=== PATIENT | male | born 1990 | race African-American/Black ===

== ENCOUNTER 2024-01-02 20:43 | Emergency (ER) | payer OTHER, SELFPAY ==
[2024-01-02 20:53] VITALS: BP 142/82; PULSE 98; RESP 16; TEMP 36.5; O2SAT 98; BMI 31.7
--- NOTE | 2024-01-02 21:03 | CRLHL7_ITS ---
For Patients: As a result of the Century Cures Act, medical imaging exams and procedure reports are released immediately into your electronic medical record. You may view this report before your referring provider. If you have questions, please contact your health care provider. Indication: Left testicular pain. Technique: Ultrasound of the scrotum and contents. Sonographic menendez-scale images were obtained with spectral and color Doppler waveform and spectral waveform analysis of the testicles. Comparison: None. Findings: Both testicles are normal in size and echotexture. No masses. No suspicious calcifications. Arterial and venous color Doppler blood flow and spectral waveforms are present in both testicles. The right testicle measures 4.4 x 2.1 x 2.9 cm and the left testicle measures 4.3 x 2.5 x 2.8 cm. Epididymis: 9 mm left epididymal head cyst. Hyperemia and enlargement of the left epididymis. Normal right epididymis. Other: Small simple left hydrocele. No sign of varicocele. Scrotal wall is normal. Impression: 1. Acute left-sided epididymitis. 2. Unremarkable testicles. No mass. No sign of torsion or inflammation. Dictated by Moe Tsai MD @ 01/02/2024 11:51:00 PM (Electronically Signed)
--- NOTE | 2024-01-02 22:24 | ED_ITS ---
HPI - General Adult General Chief complaint: Urogenital Problems, Male Stated complaint: genital pain Time Seen by Provider: 01/02/24 20:59 Source: patient Mode of arrival: ambulatory Limitations: no limitations History of Present Illness HPI narrative: 33-year-old male coming in today complaining of testicular pain. Pain is located on the left testicle. Patient states that 2 weeks ago he had similar episode on both sides and that went away within a very short amount of time, yesterday the pain came back on the left. He denies any increased urinary frequency, urgency or dysuria. He denies any penile discharge. Patient is sexually active. He states that the pain is severe and is preventing him from finding any comfortable position throughout the day. He denies any fevers or chills. No diarrhea or constipation. No blood in his urine. Denies any trauma to the testicles. Was sexually active yesterday. Related Data Previous Rx's ?Medication ?Instructions ?Recorded doxycycline hyclate 100 mg capsule 100 mg PO BID 10 days #20 caps 01/02/24 ketorolac 10 mg tablet 10 mg PO TID 5 days #15 tabs 01/02/24 Allergies Allergy/AdvReac Type Severity Reaction Status Date / Time hydrocodone Allergy Verified 01/02/24 20:58 Review of Systems Status of ROS: Reports: 10 or more systems reviewed and unremarkable except as noted in History and below Exam Narrative: Exam Narrative: Well-nourished well-developed patient in mild distress. Alert and oriented. Answers questions appropriately. Mood and affect are appropriate. Thoughts are goal oriented and rational. No tangential or magical thinking noted. Patient speaks in full sentences without needing to catch his breath. HEENT: Normocephalic atraumatic. Pupils are equally round reactive to light. Extraocular muscles are intact. Conjunctivae are moist without any icterus noted. Moist mucous membranes. : Patient has a normal right testicle without pain or discomfort. The left testicle is exquisitely tender over the epididymis. Patient almost jumps off the table in pain. He has no inguinal lymphadenopathy noted. There are no skin changes such as erythema or induration. No penile discharge. Testicles are not high riding. Const: Vital Signs, click to edit/add: Vital Signs - 24 hr 01/02/24 20:53 Temperature 97.7 F Pulse Rate [Pulse Oximeter] 98 Respiratory Rate 16 Blood Pressure [Ri ght Upper Arm] 142/82 H Pulse Oximetry 98 Oxygen Delivery Me thod Room Air Course Course ED Course: Given the amount of tenderness patient was having, we did ultrasound the testicles. This did not show any torsion. Consistent with epididymitis. Urine chlamydia gonorrhea testing pending. Patient received 500 mg of IM Rocephin while here and will be discharged on doxycycline b.i.d. for the next 10 days. Vital Signs Vital signs: Initial Vital Signs Temperature 97.7 F 01/02/24 20:53 Temperature Source Temporal Artery Scan 01/02/24 20:53 Pulse Rate 98 01/02/24 20:53 Respiratory Rate 16 01/02/24 20:53 Blood Pressure 142/82 H 01/02/24 20:53 Blood Pressure Mean 102 01/02/24 20:53 Blood Pressure Position Sitting 01/02/24 20:53 Pulse Oximetry 98 01/02/24 20:53 Oxygen Delivery Method Room Air 01/02/24 20:53 Vital Signs Temperature 97.7 F 01/02/24 20:53 Pulse Rate 98 01/02/24 20:53 Respiratory Rate 16 01/02/24 20:53 Blood Pressure 142/82 H 01/02/24 20:53 Pulse Oximetry 98 01/02/24 20:53 Oxygen Delivery Method Room Air 01/02/24 20:53 Temperature 97.7 F 01/02/24 20:53 Pulse Rate 98 01/02/24 20:53 Respiratory Rate 16 01/02/24 20:53 Blood Pressure 142/82 H 01/02/24 20:53 Pulse Oximetry 98 01/02/24 20:53 Oxygen Delivery Method Room Air 01/02/24 20:53 Medications Administered Medications: Discontinued Medications Generic Name Dose Route Start Last Admin Trade Name Freq PRN Reason Stop Dose Admin Ketorolac Tromethamine 60 mg 01/02/24 22:18 01/02/24 22:30 Ketorolac 30 Mg/Ml Inj IM 01/02/24 22:19 60 mg ONCE ONE Administration Medical Decision Making MDM Narrative Medical decision making narrative: 33-year-old male with epididymitis. Will cover with Rocephin and doxycycline. Patient to follow-up with primary care as needed Lab Data Labs: Lab Results 01/02/24 Range/Units 22:22 C.trachomatis Ampl DNA NOT DETECTED (No Detected) N.gonorrhoeae Ampl DNA NOT DETECTED (No Detected) Imaging Data Scrotal ultrasound: Attestation: I have reviewed the pertinent imaging results. Radiologist's impression: Study:?US-Testicle -01/02/2024 10:28:34 PM Ordering Physician:Carmen Lemon Final Report: Indication: Left testicular pain. Technique: Ultrasound of the scrotum and contents. Sonographic menendez-scale images were obtained with spectral and color Doppler waveform and spectral waveform analysis of the testicles. Comparison: None. Findings: Both testicles are normal in size and echotexture. No masses. No suspicious calcifications. Arterial and venous color Doppler blood flow and spectral wa veforms are present in both testicles. The right testicle measures 4.4 x 2.1 x 2.9 cm and the left testicle measures 4.3 x 2.5 x 2.8 cm. Epididymis: 9 mm left epididymal head cyst. Hyperemia and enlargement of the left epididymis. Normal right epididymis. Other: Small simple left hydrocele. No sign of varicocele. Scrotal wall is normal. Impression: 1. Acute left-sided epididymitis. 2. Unremarkable testicles. No mass. No sign of torsion or inflammation. Discharge Plan Discharge Clinical Impression: Epididymitis Patient Disposition: Home, Self-Care Condition: Stable Instructions: Epididymitis (ED) Additional Instructions: Take all antibiotics as prescribed. Okay to take pain medications as needed/as prescribed. Prescriptions: New ketorolac 10 mg tablet 10 mg PO TID 5 Days Qty: 15 0RF doxycycline hyclate 100 mg capsule 100 mg PO BID 10 Days Qty: 20 0RF Follow Up/Referrals: Provider,Not a Local [Primary Care Provider] - Stand Alone [facility]: [facility] Info Inst[facility]
[2024-01-02] MEDS: KETOROLAC 30 MG/ML inj 60 MG IM (22:30)
[2024-01-02 23:55] LABS: Chlamydia DNA Amplified* NOT DETECTED (No Detected); GC DNA Amplified* NOT DETECTED (No Detected)
== END 2024-01-02 22:51 | disposition home or self-care (01) ==
PROVIDERS: Emergency Provider Family Medicine
DX: N45.1 Epididymitis (principal)
CPT/HCPCS: 76870; 87491; 87591; 93976; 96372; 99283; 99284; J1885

== ENCOUNTER 2024-04-18 18:50 | Emergency (ER) | payer SELFPAY ==
[2024-04-18 19:02] VITALS: BP 117/80; PULSE 127; RESP 18; TEMP 35.8; O2SAT 91; BMI 29.6
--- NOTE | 2024-04-18 19:13 | ED.GENADULT ---
HPI - General Adult General Chief complaint: Fever Stated complaint: Fever, congestion, chest pain Time Seen by Provider: 04/18/24 19:03 History of Present Illness HPI narrative: sick x 3 days, coughing, congested, ribs hurt from coughing. can' t sleep. cold sweats, hot and cold. has not taken temperature. was around daughter who was sick. tested for covid at home, negative. 34-year-old man presenting to the emergency department with concern of being sick. This enough 3rd day of illness. Has been coughing in generally congested. His chest hurts from coughing. He just can not sleep. He has been taking NyQuil. He says he is just feeling cold and then ?sweatin' bullets?. No measured fever however. Daughter apparently has been sick with unspecified illness. Excreted self negative for COVID at home. He does smoke. He has been hydrating well. He has not been nauseated or vomiting. Related Data Home Medications ?Medication ?Instructions ?Recorded ?Confirmed No Known Home Medications 04/18/24 04/18/24 Allergies Allergy/AdvReac Type Severity Reaction Status Date / Time hydrocodone Allergy Verified 01/02/24 20:58 Review of Systems Status of ROS: Reports: 6 or more systems reviewed and unremarkable except as noted in History and below [facility] Social History Smoking Status: Never smoker Second hand tobacco smoke exposure: No How often do you have a drink containing alcohol: never AUDIT-C Alcohol total score: 0 Non-prescribed substance use: denies use service: No Exam Narrative: Exam Narrative: Pleasant. Mildly labored but not actually tachypneic. Quite congested. Seems like a does not feel very good. Skin is warm and dry. He has got number of facial and arm tattoos. Is well-perfused peripherally. Without edema. Lungs with good air movement and there is crepitus in the right lower lung field. Heart is tachycardic in a regular rhythm. Vitals are noted. Arrives with initially oxygen saturations of 91%. I thought may be detecting the smell ketones in the room Const: Vital Signs, click to edit/add: Vital Signs - 24 hr 04/18/24 19:02 04/18/24 20:37 04/18/24 21:00 Temperature 96.4 F L Pulse Rate 137 H Pulse Rate [Pulse Oximeter] 127 H Respiratory Rate 18 Blood Pressure [Ri ght Upper Arm] 117/80 Pulse Oximetry 91 92 91 Oxygen Delivery Me thod Room Air 04/18/24 21:05 04/18/24 21:06 04/18/24 21:30 Temperature Pulse Rate 131 H 139 H 128 H Pulse Rate [Pulse Oximeter] Respiratory Rate Blood Pressure [Ri ght Upper Arm] Pulse Oximetry 91 90 88 Oxygen Delivery Me thod Documenting provider has reviewed patient's vital signs: yes Course Vital Signs Vital signs: Initial Vital Signs Temperature 96.4 F L 04/18/24 19:02 Temperature Source Temporal Artery Scan 04/18/24 19:02 Pulse Rate 127 H 04/18/24 19:02 Respiratory Rate 18 04/18/24 19:02 Blood Pressure 117/80 04/18/24 19:02 Blood Pressure Mean 92 04/18/24 19:02 Blood Pressure Position Sitting 04/18/24 19:02 Pulse Oximetry 91 04/18/24 19:02 Oxygen Delivery Method Room Air 04/18/24 19:02 Vital Signs Temperature 96.4 F L 04/18/24 19:02 Pulse Rate 127 H 04/18/24 19:02 Respiratory Rate 18 04/18/24 19:02 Blood Pressure 117/80 04/18/24 19:02 Pulse Oximetry 91 04/18/24 19:02 Oxygen Delivery Method Room Air 04/18/24 19:02 Temperature 96.4 F L 04/18/24 19:02 Pulse Rate 128 H 04/18/24 21:30 Respiratory Rate 18 04/18/24 19:02 Blood Pressure 117/80 04/18/24 19:02 Pulse Oximetry 88 04/18/24 21:30 Oxygen Delivery Method Room Air 04/18/24 19:02 Medications Administered Medications: Discontinued Medications Generic Name Dose Route Start Last Admin Trade Name Freq PRN Reason Stop Dose Admin Ceftriaxone Sodium 1 gm 04/18/24 20:38 04/18/24 20:52 Ceftriaxone 1 Gm Vial IM 04/18/24 20:39 1 gm ONCE ONE Administration Lidocaine HCl 2.1 ml 04/18/24 20:38 04/18/24 20:53 Lidocaine 1% 5 Ml (Pf) 5 Ml Vial IM 2.1 ml DIRECTED PRN Administration Pain Medical Decision Making MDM Narrative Medical decision making narrative: Appears to have URI unspecified at this point. Would look for evidence of pneumonia, Frank screen for COVID or influenza. Does not have underlying respiratory disease apparently but again does smoke. Does cough periodically with oxygen saturations dropping down to 87%. Has been satting 90 what NIH 2%. Chest x-ray reviewed by me looks to show some infiltrative process particularly in the right lower lung though seems to have speckled infiltrate in the left side as well. Radiology over-read as below noting multifocal pneumonia TECHNIQUE: Chest radiograph, 1 view. COMPARISON: None. FINDINGS: Cardiovascular/Mediastinum: Normal heart size. Unremarkable. Lungs: Patchy multifocal consolidation involving the left mid and bilateral lower lung zones. Airways: Trachea remains midline. Pleura: No pleural effusions or pneumothorax. Bones: No acute osseous abnormalities. Upper abdomen: Unremarkable. IMPRESSION: Findings compatible with multifocal pneumonia. CBC is elevated at 13.6 COVID a and influenza negative He has continued to hydrate himself here at least with Gatorade. Tolerating fluids well. Ordered for Rocephin IM as without IV this time. Monitored for time in the emergency department oxygenation 88-90%. Decision tree with multifocal pneumonia in history of smoking I think would be prudent to admit and I did recommend this, but he clearly wants to go home. Will be treating with double coverage with Augmentin and macrolide, azithromycin outpatient. See patient discharge plan for further discussion Medical Records Medical records reviewed: Yes I reviewed the patient's medical records Lab Data Lab results reviewed: Yes I reviewed the patient's lab results Labs: Lab Results 04/18/24 04/18/24 Range/Units 19:10 19:41 WBC 13.60 H (4.50-11.00) K/uL RBC 4.17 L (4.30-5.90) m/uL Hgb 14.5 (13.5-17.5) gm/dL Hct 43.5 (37.0-53.0) % MCV 104 H (80-100) fL MCH 35 H (26-34) pg MCHC 33 (32-36) gm/dL RDW Coeff of Thomas 11.2 L (11.5-15.5) % Plt Count 216 (140-440) K/uL Neut % (Auto) 75.9 H (42.0-72.0) % Lymph % (Auto) 8.2 L (20-44) % Atlantic % (Auto) 15.4 H (0.0-11.0) % Eos % (Auto) 0.0 (0.0-7.0) % Baso % (Auto) 0.1 (0.0-3.0) % Neut # (Auto) 10.30 H (1.7-7.0) K/uL Lymph # (Auto) 1.10 (0.90-2.90) K/uL Atlantic # (Auto) 2.10 H (0.00-0.90) K/UL Eos # (Auto) 0.00 (0.00-0.50) K/uL Baso # (Auto) 0.00 (0.00-0.30) K/uL Abs Immat Gran (auto) 0.10 (0.00-0.30) K/uL Imm/Tot Granulo (auto) 0.4 % Sodium 133 L (135-149) mmol/L Potassium 3.7 (3.6-5.1) mmol/L Chloride 92 L (96-114) mmol/L Carbon Dioxide 23 (20-32) mmol/L Anion Gap 18 H (7-15) mEq/L BUN 23 (5-24) mg/dL Creatinine 0.9 (0.5-1.5) mg/dL Estimated Creat Clear 140.83 Estimated GFR 116 ml/min Glucose 134 H (60-115) mg/dL Calcium 9.8 (8.4-10.6) mg/dL SARS-CoV-2 (PCR) Negative SARS-CoV-2 (Negative) Influenza Type A (PCR) Negative PCR FLU A (Negative) Influenza Type B (PCR) Negative PCR FLU B (Negative) RSV (PCR) Negative PCR RSV (Negative) Discharge Plan Discharge Clinical Impression: Multifocal pneumonia, Nicotine dependence, Hypoxia Patient Disposition: Home w/ Parent or Adult Condition: Stable Additional Instructions: I am concerned about you and have proposed admission. I also can respect that you prefer to go home. Will be putting you on a combination of antibiotics from [facility]. This will be Augmentin and azithromycin. I would start these antibiotics yet tonight. Can take up to 800 mg of ibuprofen or up to 1000 mg of acetaminophen per dose. Return for persistent and worsening shortness of breath, elevating fever, increasing weakness. Consider cool mist humidifier next to the bedside. Do continue to focus on hydration. Do what you can to quit smoking. [facility] may still have some resources. Prescriptions: No Action No Known Home Medications Follow Up/Referrals: Provider,Not a Local [Primary Care Provider] - Stand Alone Forms: [email or web address] Info Instructions
--- NOTE | 2024-04-18 19:27 | CRLHL7_ITS ---
For Patients: As a result of the Century Cures Act, medical imaging exams and procedure reports are released immediately into your electronic medical record. You may view this report before your referring provider. If you have questions, please contact your health care provider. INDICATION: Dyspnea. TECHNIQUE: Chest radiograph, 1 view. COMPARISON: None. FINDINGS: Cardiovascular/Mediastinum: Normal heart size. Unremarkable. Lungs: Patchy multifocal consolidation involving the left mid and bilateral lower lung zones. Airways: Trachea remains midline. Pleura: No pleural effusions or pneumothorax. Bones: No acute osseous abnormalities. Upper abdomen: Unremarkable. IMPRESSION: Findings compatible with multifocal pneumonia. Dictated by Stuart Lee MD @ 04/18/2024 8:03:53 PM (Electronically Signed)
[2024-04-18 19:48] LABS: Basophils Percent Auto 0.1 % (0.0-3.0); Hematocrit 43.5 % (37.0-53.0); Hemoglobin* 14.5 gm/dL (13.5-17.5); Immature Granulocytes Pct Auto 0.4 %; Lymphocytes Percent Auto 8.2 % (20-44); Mean Corpuscular HGB Conc 33 gm/dL (32-36); Mean Corpuscular Hemoglobin 35 pg (26-34); Mean Corpuscular Volume 104 fL (80-100); Monocytes Percent Auto 15.4 % (0.0-11.0); Neutrophils Percent Auto 75.9 % (42.0-72.0); Platelet Count* 216 K/uL (140-440); RDW Coefficient of Variation % 11.2 % (11.5-15.5); Red Blood Count 4.17 m/uL (4.30-5.90)
[2024-04-18 19:52] LABS: Slide Review Reflex No
[2024-04-18 20:01] LABS: Chloride* 92 mmol/L (96-114); Potassium* 3.7 mmol/L (3.6-5.1); Sodium* 133 mmol/L (135-149)
[2024-04-18 20:04] LABS: Anion Gap 18 mEq/L (7-15); Blood Urea Nitrogen* 23 mg/dL (5-24); Carbon Dioxide* 23 mmol/L (20-32); Creatinine* 0.9 mg/dL (0.5-1.5); Est. Creatinine Clearance* 140.83; Estimated Glomerular Filt Rate 116 ml/min; Glucose* 134 mg/dL (60-115)
[2024-04-18 20:05] LABS: Calcium* 9.8 mg/dL (8.4-10.6)
[2024-04-18 20:10] LABS: PCR FLU A Negative PCR FLU A (Negative); PCR FLU B Negative PCR FLU B (Negative); PCR RSV Negative PCR RSV (Negative); SARS PCR* Negative SARS-CoV-2 (Negative)
[2024-04-18 20:37] VITALS: O2SAT 92
[2024-04-18] MEDS: cefTRIAXone 1 GM VIAL IM (20:52)
[2024-04-18] MEDS: LIDOCAINE 1% 5 ml (pf) 5 ML VIAL 2.1 ML IM (20:53)
[2024-04-18 21:00] VITALS: PULSE 137; O2SAT 91
[2024-04-18 21:05] VITALS: PULSE 131; O2SAT 91
[2024-04-18 21:06] VITALS: PULSE 139; O2SAT 90
[2024-04-18 21:30] VITALS: PULSE 128; O2SAT 88
== END 2024-04-18 21:50 | disposition home or self-care (01) ==
PROVIDERS: Emergency Provider Family Medicine
DX: J18.9 Pneumonia, unspecified organism (principal); R09.02 Hypoxemia; F17.200 Nicotine dependence, unspecified, uncomplicated
CPT/HCPCS: 36415; 71045; 80048; 85025; 87631; 94761; 96372; 99284; J0696

== ENCOUNTER 2024-06-21 17:00 | Emergency (ER) | payer SELFPAY ==
[2024-06-21 17:04] VITALS: BP 138/94; PULSE 89; RESP 18; TEMP 36.6; O2SAT 98; BMI 29.6
--- NOTE | 2024-06-21 17:28 | ED_ITS ---
HPI - General Adult General Date Seen: 06/21/24 Chief complaint: Eye Problems Stated complaint: R eye swollen, vomiting Time Seen by Provider: 06/21/24 17:26 History of Present Illness HPI narrative: 34-year-old gentleman presenting to the ER today with right eye problems. He is generally healthy. He does not wear glasses or contacts. He has no known eye injury, chemical splash, or specific trigger for his pain. His girlfriend notes that he was a bit sick yesterday and threw up, forcefully once,. No other recent illness. The patient is not feeling nauseous today. He 1st noted pain and irritation and photophobia in his right eye as well as a little bit of swelling of the eyelids when he woke up this morning around 10:00 a.m.. Symptoms have been persistent all day. Patient told his girlfriend that he could ?not see anything ? out of his eye. However that is an exaggeration. His vision is blurry in the right eye but he is able to see. His girlfriend is noted a little bit of redness of the bulbar conjunctiva. No purulent drainage. No pain in his left eye today. Related Data Home Medications ?Medication ?Instructions ?Recorded ?Confirmed No Known Home Medications 04/18/24 06/21/24 Allergies Allergy/AdvReac Type Severity Reaction Status Date / Time hydrocodone Allergy Verified 06/21/24 17:09 [facility] Social History Smoking Status: Never smoker Do you use any of these nicotine containing products: None Second hand tobacco smoke exposure: No How often do you have a drink containing alcohol: never AUDIT-C Alcohol total score: 0 Non-prescribed substance use: denies use service: No Exam Narrative: Exam Narrative: Constitutional: Appears well-developed and well-nourished. Alert. Conversant. Non toxic. HENT: Head: Atraumatic. Nose: Nose normal. Mouth/Throat: Oral mucosa is clear and moist. no trismus. Pharynx normal. Tonsils symmetric. No tonsillar enlargement, erythema, or exudate. Eyes: Conjunctivae slightly injected in the right eye. Perhaps slight erythema of the upper and lower lids of the right eye. No purulent discharge. No crusting. EOM normal and pain-free. No exophthalmos or enophthalmos. Pupils equal, round, and reactive to light. No scleral icterus. Visual acuity (R): 20/70 (-1), (L): 20/40 PERRLA, EOMI. No exophthalmos or enophthalmos. Conjunctiva without injection or chemosis Slit Lamp Exam: Lids: No foreign body noted in detailed exam upper and lower lids/margins Anterior Chamber: No cells or flare, No hyphema. No hypopyon. Cornea: No foreign body. Fluorescein staining: There is a horizontal line of fluorescein uptake affecting the lower 1/4 of the patient's right cornea figueroa spicious for a linear corneal abrasion. I do not see any coronal foreign body. Neck: Normal range of motion. Neck supple. No tracheal deviation present. Cardiovascular: Normal rate. Normal cap refill pre dry warm well perfused skin. Pulmonary/Chest: Effort normal. No stridor. No respiratory distress. Musculoskeletal: RUE: Normal range of motion. No tenderness. No deformity LUE: Normal range of motion. No tenderness. No deformity RLE: Normal range of motion. No edema. No tenderness. No deformity LLE: Normal range of motion. No edema. No tenderness. No deformity Neurological: Alert and oriented to person, place, and time. Normal strength. CN II-VII intact. No sensory deficit. GCS eye subscore is 4. GCS verbal subscore is 5. GCS motor subscore is 6. Normal coordination Skin: Skin is warm and dry. No rash noted. No pallor. Normal capillary refill. Psychiatric: Normal mood. Normal affect. Const: Vital Signs, click to edit/add: Vital Signs - 24 hr 06/21/24 17:04 Temperature 97.9 F Pulse Rate [Right Pulse Oximeter] 89 Respiratory Rate 18 Blood Pressure [Ri ght Upper Arm] 138/94 H Pulse Oximetry 98 Oxygen Delivery Me thod Room Air Course Vital Signs Vital signs: Initial Vital Signs Temperature 97.9 F 06/21/24 17:04 Temperature Source Temporal Artery Scan 06/21/24 17:04 Pulse Rate 89 06/21/24 17:04 Pulse Rhythm Regular 06/21/24 17:04 Pulse Strength 3+ Normal 06/21/24 17:04 Respiratory Rate 18 06/21/24 17:04 Blood Pressure 138/94 H 06/21/24 17:04 Blood Pressure Mean 108 H 06/21/24 17:04 Blood Pressure Position Sitting 06/21/24 17:04 Pulse Oximetry 98 06/21/24 17:04 Oxygen Delivery Method Room Air 06/21/24 17:04 Vital Signs Temperature 97.9 F 06/21/24 17:04 Pulse Rate 89 06/21/24 17:04 Respiratory Rate 18 06/21/24 17:04 Blood Pressure 138/94 H 06/21/24 17:04 Pulse Oximetry 98 06/21/24 17:04 Oxygen Delivery Method Room Air 06/21/24 17:04 Temperature 97.9 F 06/21/24 17:04 Pulse Rate 89 06/21/24 17:04 Respiratory Rate 18 06/21/24 17:04 Blood Pressure 138/94 H 06/21/24 17:04 Pulse Oximetry 98 06/21/24 17:04 Oxygen Delivery Method Room Air 06/21/24 17:04 Medical Decision Making MDM Narrative Medical decision making narrative: This patient presents with right eye photophobia, right eye discomfort, and decreased vision in his right eye. Symptoms present since he woke up this morning.. Fluorescein exam shows staining consistent with a corneal abrasion. No foreign bodies in eyes or lids noted. No corneal ulcers. I cannot identify any retained contact or corneal foriegn body at this time. No signs of retinal abnormalities, dendritic lesions, open globe, acute glaucoma, or other serious eye disease. No signs of anterior chamber involvement such as endopthalmitis at this point. No sign of bacterial conjunctivitis. Lids are normal. PLAN: 1. Topical antibiotics 2. Pain management with orals meds 3. Close f/u of eye clinic and/or return if worsening symptoms Return to the ER right away if any worsening symptoms. Otherwise follow-up with [facility] ophthalmology within 1-2 days if not improving. Supplied with erythromycin ointment he can use 4 times daily for his right eye. Discharge Plan Discharge Clinical Impression: Corneal abrasion Patient Disposition: Home, Self-Care Condition: Stable Instructions: Corneal Abrasion (DC) Additional Instructions: As we discussed, your exam today shows that you have a scratch on the front surface of your cornea. To treat this you should rest her eye and keep her eyelids closed as much as possible for the next day or 2. Use the antibiotic ointment 4 times daily in your right eye to help prevent infections. If you have worsening symptoms such as worsening pain, increasing swelling, decreasing vision, fever, or any other problems, return to the ER right away to be rechecked. If your eye is not completely improved by Wednesday morning, please follow-up with an eye doctor. You can call [facility] ophthalmology at [phone] to arrange an ER follow-up appointment. Prescriptions: No Action No Known Home Medications Follow Up/Referrals: Provider,Not a Local [Primary Care Provider] - Stand Alone Forms: [employer] Info Instructions
== END 2024-06-21 18:27 | disposition home or self-care (01) ==
LOC: ED 18:26
PROVIDERS: Emergency Provider Emergency Medicine
DX: S05.01XA Injury of conjunctiva and corneal abrasion without foreign body, right eye, initial encounter (principal)
CPT/HCPCS: 99282; 99283; A9270

== ENCOUNTER 2024-06-27 19:25 | Emergency (ER) | payer OTHER, SELFPAY | END 2024-06-27 19:35 | disposition left against medical advice (07) | LOC: ED 19:49 | PROVIDERS: Emergency Provider Emergency Medicine Emergency Medical Services | DX: Z53.21 Procedure and treatment not carried out due to patient leaving prior to being seen by health care provider (principal) ==

== ENCOUNTER 2024-09-06 15:28 | Inpatient (IN) | payer OTHER, SELFPAY ==
[2024-09-06] VITALS (7 sets, daily range): BP systolic 143–165; BP diastolic 79–121; PULSE 68–114; RESP 16–32; TEMP 36.6–37.1; O2SAT 96–100; BMI 30.6; BMI 31.3
--- NOTE | 2024-09-06 16:00 | ED_ITS ---
HPI - General Adult General Date Seen: 09/06/24 Chief complaint: Abdominal Pain Stated complaint: Abdominal Pain Time Seen by Provider: 09/06/24 15:59 History of Present Illness HPI narrative: 34-year-old male who reports a history of pancreatitis several times in the past and ongoing pattern of alcohol abuse (about a pt of Tequila every day), presents to the ER today with his fiancee for evaluation of abdominal pain located throughout the abdomen but predominantly in the left side in left flank, a bloated feeling with nausea and vomiting, and no bowel movement for several days. Symptoms actually began Wednesday. He does endorse heavier than normal alcohol intake on Wednesday night. He has been feeling unwell with pain and nausea and bloating since then. He is not able to keep any fluid down. He is not running a fever but he does feel subjectively hot and cold. His urination has been darker yellow than normal. Related Data Home Medications ?Medication ?Instructions ?Recorded ?Confirmed No Known Home Medications 04/18/24 06/21/24 Allergies Allergy/AdvReac Type Severity Reaction Status Date / Time hydrocodone Allergy Verified 06/21/24 17:09 [facility] Medical History (Updated 09/06/24 @ 20:59 by Salomon Franco MD) Peripheral neuropathy ?G62.9 - Polyneuropathy, unspecified (ICD-10) Cholelithiasis ?K80.20 - Calculus of gallbladder without cholecystitis without obstruction (ICD-10) Alcohol use disorder ?F10.90 - Alcohol use, unspecified, uncomplicated (ICD-10) Alcoholic pancreatitis ?K85.20 - Alcohol induced acute pancreatitis without necrosis or infection (ICD-10) Alcoholic hepatitis ?K70.10 - Alcoholic hepatitis without ascites (ICD-10) Family History (Updated 09/06/24 @ 20:53 by Salomon Franco MD) Father High blood pressure Social History (Updated 09/06/24 @ 20:54 by Salomon Franco MD) Narrative: He lives in [place] with his girlfriend, Daly. his healthcare power of immigration attorney is his mother, Imelda, who lives in [place]. He drinks a 5th of Tequila in 1-2 days. He smokes 2 cigars a day. He uses cannabis daily What is your current living situation?: I presently have a place to live Problems where you live: no known problems Problems where you live details: N/A In the past 12 months, utilities in danger of being shut off: no In past 12 months, lack of transportation kept you from medical appts, meetings, work, or getting things needed for daily living: no In the past 12 mos, have been you worried that your food would run out before you had money to buy more?: never true In the past 12 mos, the food you bought just didn't last and you didn't have money to buy more?: never true Highest level of school completed/degree received: some college, no degree Smoking Status: Current every day smoker What tobacco products do you use: cigars Do you use any of these nicotine containing products: None Second hand tobacco smoke exposure: No How often do you have a drink containing alcohol: 4 or more times a week Alcohol type details: 500-1L tequila/day AUDIT-C Alcohol total score: 4 Non-prescribed substance use: marijuana (any form) Caffeine: No How often does anyone, including family, friends and others, physically hurt you : never How often does anyone, including family, friends and others, insult or talk down to you: never How often does anyone, including family, friends and others, threaten you with harm: never How often does anyone, including family, friends and others, scream or curse at you: never service: No Exam Narrative: Exam Narrative: Constitutional: Appears well-developed and well-nourished. Alert. Conversant. Very uncomfortable and rolling around on the bed. He is able to roll onto a supine position for a good abdominal exam. HENT: Head: Atraumatic. Nose: Nose normal. Mouth/Throat: Oral mucosa is clear and moist. no trismus. Pharynx normal. Eyes: Conjunctivae normal. EOM normal. Pupils equal, round, and reactive to light. No scleral icterus. Neck: Normal range of motion. Neck supple. No tracheal deviation present. Cardiovascular: Normal rate, regular rhythm. No gallop. No friction rub. No murmur heard. Symmetric radial artery pulses Pulmonary/Chest: Effort normal. No stridor. No respiratory distress. No wheezes. No rales. No rhonchi . Abdominal: Soft. Bowel sounds absent. No distension. No mass. Marked to the left upper quadrant, epigastric, and left-sided/left flank tenderness. No rebound. No guarding. Musculoskeletal: RUE: Normal range of motion. No tenderness. No deformity LUE: Normal range of motion. No tenderness. No deformity RLE: Normal range of motion. No edema. No tenderness. No deformity LLE: Normal range of motion. No edema. No tenderness. No deformity Neurological: Alert and oriented to person, place, and time. Normal strength. CN II-VII intact. No sensory deficit. GCS eye subscore is 4. GCS verbal subscore is 5. GCS motor subscore is 6. Normal coordination Skin: Skin is warm and dry. No rash noted. No pallor. Normal capillary refill. Psychiatric: Very uncomfortable. Otherwise polite. Remembers me from a previous ER visit. Endorses regular alcohol use. Const: Vital Signs, click to edit/add: Vital Signs - 24 hr 09/06/24 15:57 09/06/24 18:06 09/06/24 20:03 Temperature 97.9 F 98.4 F 98.8 F Pulse Rate [Pulse Oximeter] 114 H 100 104 H Respiratory Rate 32 H 18 18 Blood Pressure [Ri ght Upper Arm] 149/91 H 150/104 H 161/113 H Pulse Oximetry 100 96 96 Oxygen Delivery Me thod Room Air Room Air Room Air Course Course ED Course: Recheck-remains uncomfortable after 1st dose of Dilaudid Reevaluation(s) Reevaluation #1: Recheck-feeling anxious, mildly tremulous. Concern for possible mild early alcohol withdrawal. Will also add on benzo. Reevaluation #2: Recheck-discussed with hospitalist, Dr. Franco who graciously came to the ER to evaluate this patient and will admit him to the hospitalist service for pancreatitis. Vital Signs Vital signs: Initial Vital Signs Temperature 97.9 F 09/06/24 15:57 Temperature Source Temporal Artery Scan 09/06/24 15:57 Pulse Rate 114 H 09/06/24 15:57 Respiratory Rate 32 H 09/06/24 15:57 Blood Pressure 149/91 H 09/06/24 15:57 Blood Pressure Mean 110 H 09/06/24 15:57 Blood Pressure Position Sitting 09/06/24 15:57 Pulse Oximetry 100 09/06/24 15:57 Oxygen Delivery Method Room Air 09/06/24 15:57 Vital Signs Temperature 97.9 F 09/06/24 15:57 Pulse Rate 114 H 09/06/24 15:57 Respiratory Rate 32 H 09/06/24 15:57 Blood Pressure 149/91 H 09/06/24 15:57 Pulse Oximetry 100 09/06/24 15:57 Oxygen Delivery Method Room Air 09/06/24 15:57 Temperature 98.7 F 09/06/24 23:00 Pulse Rate 103 H 09/06/24 23:00 Respiratory Rate 18 09/06/24 23:00 Blood Pressure 143/79 H 09/06/24 23:00 Pulse Oximetry 100 09/06/24 23:00 Oxygen Delivery Method Room Air 09/06/24 23:00 Medications Administered Medications: Generic Name Dose Route Start Last Admin Trade Name Freq PRN Reason Stop Dose Admin Diphenhydramine HCl 25 mg 09/07/24 00:53 09/07/24 01:55 Diphenhydramine 25 Mg Capsule PO 25 mg Q6H PRN Administration Hydromorphone HCl 0.5 mg 09/06/24 20:36 09/07/24 01:55 Hydromorphone 0.5 Mg/0.5 Ml Inj IVP 0.5 mg Q1H PRN Administration Pain Dextrose/Lactated Ringer's 1,000 mls @ 125 mls/hr 09/06/24 20:40 09/06/24 22:05 5 % Dextrose In Lac Ringer's IV 125 mls/hr .Q8H ASHLIE Administration Melatonin 3 mg 09/06/24 21:06 09/06/24 22:40 Melatonin 3 Mg Tablet PO 3 mg HS PRN Administration Polyethylene Glycol 17 gm 09/06/24 21:06 09/06/24 21:36 Polyethylene Glycol 3350 17 Gm Pack PO 17 gm DAILY PRN Administration Sodium Chloride 5 ml 09/06/24 21:06 09/07/24 00:08 Sodium Chloride 0.9 % (Flush) 10 Ml Syringe IVF 5 ml BID ASHLIE Administration Thiamine HCl 250 mg 09/06/24 21:00 09/06/24 22:09 Thiamine 100 Mg Tablet PO Not Given BID ASHLIE Discontinued Medications Generic Name Dose Route Start Last Admin Trade Name Freq PRN Reason Stop Dose Admin Diazepam 10 mg 09/06/24 20:26 09/06/24 20:33 Diazepam 5 Mg/Ml Inj IV 09/06/24 20:27 10 mg ONCE ONE Administration Hydromorphone HCl 0.5 mg 09/06/24 16:42 09/06/24 21:36 Hydromorphone 0.5 Mg/0.5 Ml Inj IVP 0.5 mg Q1H PRN Administration Pain Sodium Chloride 1,000 mls @ 1,000 mls/hr 09/06/24 16:45 09/06/24 19:31 0.9 % Sodium Chloride 1000 Ml IV 09/06/24 17:44 Infused .Q1H ASHLIE Infusion Thiamine HCl 250 mg/ Sodium 102.5 mls @ 102.5 mls/hr 09/06/24 20:27 09/06/24 21:26 Chloride IVPB 09/06/24 20:28 Not Given ONCE ONE Folic Acid 1 mg/ Sodium 50.2 mls @ 100.4 mls/hr 09/06/24 20:26 09/06/24 23:03 Chloride IVPB 09/06/24 20:27 Infused ONCE ONE Infusion Thiamine HCl 200 mg/ Sodium 102 mls @ 102 mls/hr 09/06/24 20:29 09/06/24 23:05 Chloride IV 09/06/24 20:30 Infused ONCE ONE Infusion Phenobarbital 260 mg/ Sodium 104 mls @ 208 mls/hr 09/06/24 20:36 09/06/24 23:05 Chloride IVPB 09/06/24 20:37 Infused ONCE ONE Infusion Ketorolac Tromethamine 15 mg 09/06/24 16:42 09/06/24 17:59 Ketorolac 15 Mg/Ml Inj IVP 09/06/24 16:43 15 mg ONCE ONE Administration Ondansetron HCl 4 mg 09/06/24 16:42 09/06/24 18:00 Ondansetron 2 Mg/Ml Inj IVP 09/06/24 16:43 4 mg ONCE ONE Administration Ondansetron HCl 4 mg 09/06/24 19:52 09/06/24 19:57 Ondansetron 2 Mg/Ml Inj IVP 09/06/24 19:53 4 mg ONCE ONE Administration Medical Decision Making MDM Narrative Medical decision making narrative: 34-year-old male with a history of alcohol abuse and daily to kill a consumption and several previous episodes of pancreatitis presents to the ER today with abdominal pain, nausea and vomiting, bloating, and absent bowel movement with symptoms ongoing for the past 3 days, since Wednesday. He is concerned that he probably has pancreatitis again Differential is broad including pancreatitis, cholecystitis, gastritis, peptic ulcer disease, duodenitis, unusual presentation of appendicitis, bowel obstruction, ileus, colitis, diverticulitis, cyclic vomiting syndrome, kidney stone, pyelonephritis, among others. Laboratory workup does show evidence for pancreatitis with a lipase of 3467. Likely related to alcohol consumption. Alcohol level is 0.1 to at 1st draw. LFTs show mildly abnormal AST at 90, ALT of 50. Total bilirubin is 1.0. Alk- phos is 107. CT scan confirms signs of acute pancreatitis. Also there is an enlarged gallbladder with a few gallstones in it. In review of old records I see he has had previous gallbladder imaging. Ultrasound gallbladder 01/19/2021-visible through the [employer] system IMPRESSION: Distended gallbladder with a prominent fold. No biliary obstruction. This may be due to fasting state and recommend clinical correlation. Fatty liver. At this point strong suspicion is that his pancreatitis is triggered by alcohol use. He will be admitted to the hospitalist service here for treatment of his pancreatitis. If failing to improve may need gallbladder ultrasound or MRCP for further evaluation of his common bile duct. Incidental he does have signs of alcohol intoxication as labs today with an alcohol level of 0.12. While here in the ER he did begin to feel mildly shaky. Concern is for possible mild early alcohol withdrawal. Benzos administered. Discussed plan of care the patient and his girlfriend. They are both in agreement. Counseled alcohol cessation. Patient verbalizes his strong desire to go through alcohol withdrawal and then maintain long-term sobriety. He plans to quit drinking. Lab Data Labs: Lab Results 09/06/24 09/06/24 09/06/24 Range/Units 16:14 19:15 20:36 WBC 7.13 (4.50-11.00) K/uL RBC 3.77 L (4.30-5.90) m/uL Hgb 13.1 L (13.5-17.5) gm/dL Hct 38.5 (37.0-53.0) % MCV 102 H (80-100) fL MCH 35 H (26-34) pg MCHC 34 (32-36) gm/dL RDW Coeff of Thomas 10.9 L (11.5-15.5) % Plt Count 213 (140-440) K/uL Neut % (Auto) 71.8 (42.0-72.0) % Lymph % (Auto) 19.2 L (20-44) % [place] % (Auto) 8.6 (0.0-11.0) % Eos % (Auto) 0.0 (0.0-7.0) % Baso % (Auto) 0.3 (0.0-3.0) % Neut # (Auto) 5.12 (1.7-7.0) K/uL Lymph # (Auto) 1.40 (0.90-2.90) K/uL [place] # (Auto) 0.60 (0.00-0.90) K/UL Eos # (Auto) 0.00 (0.00-0.50) K/uL Baso # (Auto) 0.02 (0.00-0.30) K/uL Abs Immat Gran (auto) 0.01 (0.00-0.30) K/uL Imm/Tot Granulo (auto) 0.1 % Sodium 142 (135-149) mmol/L Potassium 3.7 (3.6-5.1) mmol/L Chloride 105 (96-114) mmol/L Carbon Dioxide 16 L (20-32) mmol/L Anion Gap 21 H (7-15) mEq/L BUN 7 (5-24) mg/dL Creatinine 0.8 (0.5-1.5) mg/dL Estimated Creat Clear 158.44 Estimated GFR 121 ml/min Glucose 109 (60-115) mg/dL Calcium 8.7 (8.4-10.6) mg/dL Magnesium 1.1 L (1.5-2.6) mg/dL Total Bilirubin 1.0 (0.1-1.5) mg/dL AST 90 H (12-35) U/L ALT 50 (4-50) U/L Alkaline Phosphatase 107 (40-150) U/L Total Protein 7.1 (6.0-8.3) g/dL Albumin 4.4 (3.3-5.0) g/dL Lipase 3467 H (23-300) U/L Urine Color Yellow (Yellow) Urine Appearance Clear (Clear) Urine pH 6.0 (5.0-8.5) Ur Specific [place] 1.010 (1.000-1.030) Urine Protein Negative (Negative) Urine Glucose (UA) Negative (Negative) Urine Ketones 2+ A (Negative) Urine Blood Negative (Negative) Urine Nitrite Negative (Negative) Urine Bilirubin Negative (Negative) Urine Urobilinogen 0.2 (0.2-1.0) Ur Leukocyte Esterase Negative (Negative) Urine RBC 0-2 (0-2) Urine WBC 2-5 (0-5) Ur Squamous Epith Cells Few (None-Few) Urine Bacteria None (None) Urine Opiates Screen POSITIVE A (Negative) Ur Oxycodone Screen Negative (Negative) Urine Methadone Screen Negative (Negative) Ur Barbiturates Screen Negative (Negative) U Tricyclic Antidepress Negative (Negative) Ur Phencyclidine Scrn Negative (Negative) Ur Amphetamines Screen Negative (Negative) U Methamphetamines Scrn Negative (Negative) U Benzodiazepines Scrn Negative (Negative) Urine Cocaine Screen Negative (Negative) U Marijuana (THC) Screen Negative (Negative) Ur Drug Screen Comment See Note Ethyl Alcohol 0.12 H (0.01-0.03) % Lab Acknowledgement 09/06/24 Range/Units 20:41 WBC (4.50-11.00) K/uL RBC (4.30-5.90) m/uL Hgb (13.5-17.5) gm/dL Hct (37.0-53.0) % MCV (80-100) fL MCH (26-34) pg MCHC (32-36) gm/dL RDW Coeff of Thomas (11.5-15.5) % Plt Count (140-440) K/uL Neut % (Auto) (42.0-72.0) % Lymph % (Auto) (20-44) % [place] % (Auto) (0.0-11.0) % Eos % (Auto) (0.0-7.0) % Baso % (Auto) (0.0-3.0) % Neut # (Auto) (1.7-7.0) K/uL Lymph # (Auto) (0.90-2.90) K/uL [place] # (Auto) (0.00-0.90) K/UL Eos # (Auto) (0.00-0.50) K/uL Baso # (Auto) (0.00-0.30) K/uL Abs Immat Gran (auto) (0.00-0.30) K/uL Imm/Tot Granulo (auto) % Sodium (135-149) mmol/L Potassium (3.6-5.1) mmol/L Chloride (96-114) mmol/L Carbon Dioxide (20-32) mmol/L Anion Gap (7-15) mEq/L BUN (5-24) mg/dL Creatinine (0.5-1.5) mg/dL Estimated Creat Clear Estimated GFR ml/min Glucose (60-115) mg/dL Calcium (8.4-10.6) mg/dL Magnesium (1.5-2.6) mg/dL Total Bilirubin (0.1-1.5) mg/dL AST (12-35) U/L ALT (4-50) U/L Alkaline Phosphatase (40-150) U/L Total Protein (6.0-8.3) g/dL Albumin (3.3-5.0) g/dL Lipase (23-300) U/L Urine Color (Yellow) Urine Appearance (Clear) Urine pH (5.0-8.5) Ur Specific [place] (1.000-1.030) Urine Protein (Negative) Urine Glucose (UA) (Negative) Urine Ketones (Negative) Urine Blood (Negative) Urine Nitrite (Negative) Urine Bilirubin (Negative) Urine Urobilinogen (0.2-1.0) Ur Leukocyte Esterase (Negative) Urine RBC (0-2) Urine WBC (0-5) Ur Squamous Epith Cells (None-Few) Urine Bacteria (None) Urine Opiates Screen (Negative) Ur Oxycodone Screen (Negative) Urine Methadone Screen (Negative) Ur Barbiturates Screen (Negative) U Tricyclic Antidepress (Negative) Ur Phencyclidine Scrn (Negative) Ur Amphetamines Screen (Negative) U Methamphetamines Scrn (Negative) U Benzodiazepines Scrn (Negative) Urine Cocaine Screen (Negative) U Marijuana (THC) Screen (Negative) Ur Drug Screen Comment Ethyl Alcohol (0.01-0.03) % Lab Acknowledgement Test Added Imaging Data CT scan - abdomen: Attestation: I have reviewed the pertinent imaging results. Radiologist's impression: IMPRESSION: 1. Acute interstitial edematous pancreatitis. 2. Distended gallbladder with cholelithiasis. No pericholecystic edema. Consider further evaluation with gallbladder ultrasound. 3. Hepatic steatosis. Few indeterminate hyperattenuating hepatic lesions the largest of which is a 11 millimeter lesion in the left hepatic lobe. Recommend further evaluation with a nonemergent contrast-enhanced MRI of the liver. Discharge Plan Discharge Clinical Impression: Pancreatitis, Alcohol abuse, Alcohol withdrawal
[2024-09-06 16:45] LABS: PCR FLU A Negative PCR FLU A (Negative); PCR FLU B Negative PCR FLU B (Negative); PCR RSV Negative PCR RSV (Negative); SARS PCR* Negative SARS-CoV-2 (Negative)
[2024-09-06 17:00] LABS: Basophils Absolute Auto 0.02 K/uL (0.00-0.30); Basophils Percent Auto 0.3 % (0.0-3.0); Hematocrit 38.5 % (37.0-53.0); Hemoglobin* 13.1 gm/dL (13.5-17.5); Immature Granulocytes Abs Auto 0.01 K/uL (0.00-0.30); Immature Granulocytes Pct Auto 0.1 %; Lymphocytes Percent Auto 19.2 % (20-44); Mean Corpuscular HGB Conc 34 gm/dL (32-36); Mean Corpuscular Hemoglobin 35 pg (26-34); Mean Corpuscular Volume 102 fL (80-100); Monocytes Percent Auto 8.6 % (0.0-11.0); Neutrophils Absolute Auto 5.12 K/uL (1.7-7.0); Neutrophils Percent Auto 71.8 % (42.0-72.0); Platelet Count* 213 K/uL (140-440); RDW Coefficient of Variation % 10.9 % (11.5-15.5); Red Blood Count 3.77 m/uL (4.30-5.90); White Blood Count* 7.13 K/uL (4.50-11.00)
[2024-09-06 17:03] LABS: Albumin* 4.4 g/dL (3.3-5.0); Chloride* 105 mmol/L (96-114)
[2024-09-06 17:04] LABS: Potassium* 3.7 mmol/L (3.6-5.1); Sodium* 142 mmol/L (135-149)
[2024-09-06 17:06] LABS: Alkaline Phosphatase* 107 U/L (40-150); Anion Gap 21 mEq/L (7-15); Aspartate Amino Transferase* 90 U/L (12-35); Blood Urea Nitrogen* 7 mg/dL (5-24); Carbon Dioxide* 16 mmol/L (20-32); Creatinine* 0.8 mg/dL (0.5-1.5); Est. Creatinine Clearance* 158.44; Estimated Glomerular Filt Rate 121 ml/min; Glucose* 109 mg/dL (60-115); Slide Review Reflex No; Total Protein* 7.1 g/dL (6.0-8.3)
[2024-09-06 17:07] LABS: Alanine Aminotransferase* 50 U/L (4-50); Calcium* 8.7 mg/dL (8.4-10.6)
[2024-09-06 17:15] LABS: Lipase* 3467 U/L (23-300)
[2024-09-06 17:44] LABS: Ethanol* 0.12 % (0.01-0.03)
[2024-09-06] MEDS: KETOROLAC 15 MG/ML inj IVP (17:59)
[2024-09-06] MEDS: 0.9 % SODIUM CHLORIDE 1000 ml 1,000 ML IV (17:59)
[2024-09-06] MEDS: ONDANSETRON 2 MG/ML inj 4 MG IVP ×2 (18:00→19:57)
[2024-09-06] MEDS: HYDROmorphone 0.5 mg/0.5 ml inj IVP ×5 (18:01→22:40)
[2024-09-06 19:26] LABS: Appearance Urine Clear (Clear); Bilirubin Urine Negative (Negative); Blood Urine Negative (Negative); Color Urine Yellow (Yellow); Glucose Urine Negative (Negative); Ketones Urine 2+ (Negative); Leukocyte Esterase Urine Negative (Negative); Nitrite Urine Negative (Negative); Protein Urine Negative (Negative); Urobilinogen Urine 0.2 (0.2-1.0)
[2024-09-06 19:29] LABS: RBC Urine 0-2 (0-2); Squamous Epithelial Cell Urine Few (None-Few)
[2024-09-06] MEDS: diazePAM 5 MG/ML inj 10 MG IV (20:33)
--- NOTE | 2024-09-06 20:47 | PM.IMHP1 ---
Hospitalist- H&P: HPI History of Present Illness Date Seen: 09/06/24 Chief complaint: Abdominal Pain Narrative: Tyshawn Hurt is a 34 year old male with history of alcohol use disorder, alcoholic hepatitis and alcoholic pancreatitis admitted through the emergency department with a 2 day history of epigastric and left flank pain. Patient reports previous history of similar symptoms with alcoholic pancreatitis in the past. He reports heavy daily drinking. He drinks a 5th of Tequila in 1-2 days. He has had recurrent vomiting and been unable to keep down food for last 2 days. He has not had bloody emesis. No bowel movement for the past 2 to 3 days. He has been able to keep down some alcohol and water. He reports he has some alcohol withdrawal. He is currently feeling tremulous. In April he had pneumonia and stop drinking for a couple weeks and did okay without being hospitalized for it. Review of Systems Narrative: He reports that he is developing numbness in both feet. [facility] Medical History (Updated 09/06/24 @ 20:59 by Salomon Franco MD) Peripheral neuropathy ?G62.9 - Polyneuropathy, unspecified (ICD-10) Cholelithiasis ?K80.20 - Calculus of gallbladder without cholecystitis without obstruction (ICD-10) Alcohol use disorder ?F10.90 - Alcohol use, unspecified, uncomplicated (ICD-10) Alcoholic pancreatitis ?K85.20 - Alcohol induced acute pancreatitis without necrosis or infection (ICD-10) Alcoholic hepatitis ?K70.10 - Alcoholic hepatitis without ascites (ICD-10) Family History (Updated 09/06/24 @ 20:53 by Salomon Franco MD) Father High blood pressure Social History (Updated 09/06/24 @ 20:54 by Salomon Franco MD) Narrative: He lives in [place] with his girlfriend, Daly. his healthcare power of commonwealth attorney is his mother, Imelda, who lives in [place]. He drinks a 5th of Tequila in 1-2 days. He smokes 2 cigars a day. He uses cannabis daily Smoking Status: Never smoker Do you use any of these nicotine containing products: None Second hand tobacco smoke exposure: No How often do you have a drink containing alcohol: never AUDIT-C Alcohol total score: 0 Non-prescribed substance use: denies use service: No Meds Home Medications and Allergies Home Medications ?Medication ?Instructions ?Recorded ?Confirmed ?Type No Known Home Medications 04/18/24 06/21/24 History Allergies Allergy/AdvReac Type Severity Reaction Status Date / Time hydrocodone Allergy Verified 06/21/24 17:09 Exam Narrative: Exam Narrative: He is alert and appears in obvious discomfort. Holding his epigastrium and left flank were reports he is having moderate pain. Eyes normal. Oropharynx with dry mucous membranes. Neck is supple without mass or adenopathy. Respirations are clear to auscultation. Cardiovascular: S1, S2, regular rate and rhythm. Abdomen: Bowel sounds are present. Abdomen is soft with moderate epigastric and left upper quadrant and left lower quadrant tenderness. No right-sided tenderness or peritonitis. No mass. Extremities with good capillary refill and good peripheral pulses. He moves all 4 extremities well. Minimal tremor in his hands. He has intact sensation to soft touch in both feet. No edema Const: Vital Signs, click to edit/add: Vital Signs - 24 hr 09/06/24 15:57 09/06/24 18:06 09/06/24 20:03 Temperature 97.9 F 98.4 F 98.8 F Pulse Rate [Pulse Oximeter] 114 H 100 104 H Respiratory Rate 32 H 18 18 Blood Pressure [Ri ght Upper Arm] 149/91 H 150/104 H 161/113 H Pulse Oximetry 100 96 96 Oxygen Delivery Me thod Room Air Room Air Room Air Documenting provider has reviewed patient's vital signs: yes Hospitalist - H&P: Result Labs Labs: Short CBC 09/06/24 Range/Units 16:14 WBC 7.13 (4.50-11.00) K/uL Hgb 13.1 L (13.5-17.5) gm/dL Hct 38.5 (37.0-53.0) % Plt Count 213 (140-440) K/uL BMP 09/06/24 16:14 Sodium 142 Potassium 3.7 Chloride 105 Carbon Dioxide 16 L BUN 7 Creatinine 0.8 Glucose 109 Calcium 8.7 Liver Function 09/06/24 Range/Units 16:14 Total Bilirubin 1.0 (0.1-1.5) mg/dL AST 90 H (12-35) U/L ALT 50 (4-50) U/L Alkaline Phosphatase 107 (40-150) U/L Albumin 4.4 (3.3-5.0) g/dL Urine 09/06/24 Range/Units 19:15 Urine Color Yellow (Yellow) Urine Appearance Clear (Clear) Urine pH 6.0 (5.0-8.5) Ur Specific [place] 1.010 (1.000-1.030) Urine Protein Negative (Negative) Urine Glucose (UA) Negative (Negative) Imaging CT scan - abdomen: Radiologist's impression: INDICATION: Abdominal pain and left flank pain. History of pancreatitis. COMPARISON: None. TECHNIQUE: CT of the abdomen and pelvis with intravenous contrast (120 milliliters Isovue 370). FINDINGS: Lung bases: No pleural effusion. Liver: Smooth hepatic contour. There is hepatic steatosis. There are a few indeterminate hyperattenuating hepatic lesions the largest of which is a 11 millimeter lesion in the left hepatic lobe (2/46). Gallbladder and biliary tree: The gallbladder is distended and there is cholelithiasis. No pericholecystic edema. Unremarkable CT appearance of the intrahepatic and extrahepatic biliary tree. Spleen: No splenomegaly. Pancreas: There is mild peripancreatic edema. Slightly heterogeneous attenuation of the pancreas. No definite nonenhancing portions of the pancreas to suggest necrosis. Adrenal glands: Normal. Kidneys and ureters: No hydroureteronephrosis. 15 millimeter simple appearing left interpolar exophytic renal cyst. Bladder: Unremarkable CT appearance. Visualized reproductive organs: Unremarkable CT appearance. Gastrointestinal tract: No focal abnormally dilated loops of bowel. Normal appendix. Peritoneal cavity: No free fluid or free air. Lymph nodes: No enlarged abdominal or pelvic lymph nodes by CT size criteria. Vessels: No abdominal aortic aneurysm. Abdominal and pelvic wall: Normal. Bones: There are osseous degenerative changes. Mild anterior vertebral body wedging centered at the thoracolumbar junction. IMPRESSION: 1. Acute interstitial edematous pancreatitis. 2. Distended gallbladder with cholelithiasis. No pericholecystic edema. Consider further evaluation with gallbladder ultrasound. 3. Hepatic steatosis. Few indeterminate hyperattenuating hepatic lesions the largest of which is a 11 millimeter lesion in the left hepatic lobe. Recommend further evaluation with a nonemergent contrast-enhanced MRI of the liver. Assessment and Plan Assessment and plan (1) Alcoholic pancreatitis: Problem comment: Cautious IV fluids, analgesia, clear liquid diet. Consider ultrasound of the gallbladder when clinically improving Status: Acute (2) Alcohol withdrawal: Problem comment: Monitoring, CIWA protocol, phenobarb Status: Acute (3) Alcohol use disorder: Problem comment: Patient is motivated to stop drinking. Provide resources at the time of discharge Status: Acute (4) Cholelithiasis: Problem comment: Consider right upper quadrant ultrasound when clinically improving Status: Acute (5) Peripheral neuropathy: Problem comment: I suspect peripheral neuropathy developing due to alcohol abuse. Status: Acute Plan 34-year-old male admitted to the hospital with pancreatitis likely due to alcohol. Admitted for pain management, management of complications of alcohol use and pancreatitis, management of alcohol withdrawal. Anticipate 2-3 days in the hospital for resolving his acute pancreatitis Total Time Spent Total Time Spent: Total time spent today is 65 minutes in coordination of care, review of outside records, discussing with patient, girlfriend and other providers ongoing management of pancreatitis, alcohol withdrawal and alcohol use disorder
[2024-09-06 20:54] LABS: Amphetamine Screen Urine Negative (Negative); Barbiturate Screen Urine Negative (Negative); Benzodiazepines Screen Urine Negative (Negative); Cannabinoid Screen Urine Negative (Negative); Cocaine Screen Urine Negative (Negative); Methadone Screen Urine Negative (Negative); Methamphetamines Screen Urine Negative (Negative); Opiate Screen Urine POSITIVE (Negative); Oxycodone Screen Urine Negative (Negative); Phencyclidine Screen Urine Negative (Negative); Tricyclic Antidepressant Urine Negative (Negative)
[2024-09-06] MEDS: FOLIC ACID 1 MG in 0.9 % SODIUM CHLORIDE 50 ml 50 ML 100.4 MG IVPB (20:59)
[2024-09-06 21:31] LABS: Magnesium* 1.1 mg/dL (1.5-2.6)
[2024-09-06] MEDS: polyethylene glycoL 3350 17 GM PACK PO (21:36)
[2024-09-06] MEDS: PHENobarbitaL 260 MG in 0.9 % SODIUM CHLORIDE 100 ml 100 ML 208 MG IVPB (22:05)
[2024-09-06] MEDS: 5 % DEXTROSE IN LAC RINGER'S 1,000 ML 125 ML IV (22:05)
[2024-09-06] MEDS: SODIUM CHLORIDE 0.9 % (FLUSH) 10 ML SYRINGE 5 ML IVF (22:06)
[2024-09-06] MEDS: MELATONIN 3 MG TABLET PO (22:40)
--- NOTE | 2024-09-06 23:06 | PC.NURSE ---
End of Shift: Patient admitted to 258. Pleasant and cooperative. Afebrile. Rating pain in abdomen 8-9/10 and PRN Dilaudid given x2. Tolerating clear liquids with no nausea. Up with SBA. CIWA 2-4.
[2024-09-07] VITALS (7 sets, daily range): BP systolic 140–158; BP diastolic 93–119; PULSE 80–96; RESP 16–18; TEMP 36.9–37.3; O2SAT 97–99
[2024-09-07] MEDS: SODIUM CHLORIDE 0.9 % (FLUSH) 10 ML SYRINGE 5 ML IVF ×3 (00:08→20:25)
[2024-09-07] MEDS: HYDROmorphone 0.5 mg/0.5 ml inj IVP ×5 (00:08→11:08)
[2024-09-07] MEDS: diphenhydrAMINE 25 MG CAPSULE PO ×2 (01:55→08:38)
[2024-09-07] MEDS: 5 % DEXTROSE IN LAC RINGER'S 1,000 ML 125 ML IV (06:17)
[2024-09-07 06:35] LABS: Lactate* 0.8 mmol/L (0.5-1.9)
[2024-09-07 06:56] LABS: Chloride* 100 mmol/L (96-114)
[2024-09-07 06:57] LABS: Potassium* 3.7 mmol/L (3.6-5.1); Sodium* 135 mmol/L (135-149)
[2024-09-07 06:59] LABS: Blood Urea Nitrogen* 4 mg/dL (5-24); Creatinine* 0.7 mg/dL (0.5-1.5); Est. Creatinine Clearance* 176.14; Estimated Glomerular Filt Rate 126 ml/min
[2024-09-07 07:00] LABS: Anion Gap 6 mEq/L (7-15); Calcium* 8.2 mg/dL (8.4-10.6); Carbon Dioxide* 29 mmol/L (20-32); Glucose* 132 mg/dL (60-115)
[2024-09-07 07:27] LABS: Lipase* 3714 U/L (23-300)
--- NOTE | 2024-09-07 07:37 | PC.NURSE ---
Pt is alert and oriented x3. Afebrile. Pt reports 7-8/10 left flank pain,?managed with PRN medication. Pt reported feeling itchy prior to sleep, updated MD Caleb (Chandu) PRN po Benadryl ordered and given with relief. Pt up SBA, voiding, and tolerating a clear liquid diet. Pt has tolerated water, popsicles, and jello.
[2024-09-07] MEDS: MULTIVITAMIN/MINERALS 1 TABLET 1 TAB PO (08:38)
[2024-09-07] MEDS: THIAMINE 100 MG TABLET 250 MG PO ×2 (08:39→20:25)
--- NOTE | 2024-09-07 09:05 | PM.IMPN1 ---
Progress Note: A&P Assessment and plan (1) Alcoholic pancreatitis: Problem details: - IVFs, antiemetics and pain management - gallbladder ultrasound 09/07 - labs reassuring with the exception of hypomagnesemia on 09/07, replacing IV - slowly advance diet and transition to oral analgesia as tolerated Status: Acute (2) Alcohol withdrawal: Problem details: - received Phenobarbital x1 09/06 - CIWA scores 2-4 since admission Status: Acute (3) Alcohol use disorder: Problem details: - motivated to quit using, SW referral placed to assist with resources Status: Acute (4) Cholelithiasis: Problem details: - ultrasound 09/07, pending results, general Surgery evaluation Status: Acute (5) Peripheral neuropathy: Problem details: - presumably / ETOH use, on thiamine and MVI Status: Acute Plan - per above - possibly d/c home tomorrow pending clinical course Subjective Date Seen: 09/07/24 Interval history: Tyshawn was admitted to the hospital last night for acute pancreatitis in the setting of known alcohol use disorder. Imaging in ER c/w pancreatitis, also exhibited hepatic steatosis and a distended gallbladder/cholelithiasis. Overnight, required 3 doses of IV Dilaudid for pain management. Doesn't feel like he'd be able to tolerate more po intake this morning, having clears with mild abdominal bloating after drinking. Also uncomfortable from constipation; hasn't had a BM for 4-5 days. CIWA scores have been 2-4. Received Phenobarbital x1 on admission. Pulse 90s, BPs elevated. No concerns of withdrawal symptoms for me this morning. Exam Narrative: Exam Narrative: GEN: Alert and oriented, answering questions appropriately HEENT: EOMIs bilaterally, no scleral icterus CV: RRR, No concerning murmurs R: LCTA bilaterally without concerning wheezing Ab: No masses, mild distention, + ttp in epigastrium and LUQ, negative Guy's sign Ext: wwp, no concerning edema Skin: No concerning skin lesions or rashes on exposed skin Neuro: Nonfocal Psych: Appropriate Const: Vital Signs, click to edit/add: Vital Signs - 24 hr 09/06/24 15:57 09/06/24 18:06 09/06/24 20:03 Temperature 97.9 F 98.4 F 98.8 F Pulse Rate Pulse Rate [Left P ulse Oximeter] Pulse Rate [Pulse Oximeter] 114 H 100 104 H Respiratory Rate 32 H 18 18 Blood Pressure [Ri ght Arm] Blood Pressure [Ri ght Upper Arm] 149/91 H 150/104 H 161/113 H Pulse Oximetry 100 96 96 Oxygen Delivery Me thod Room Air Room Air Room Air 09/06/24 21:00 09/06/24 21:32 09/06/24 21:32 Temperature 98.7 F Pulse Rate Pulse Rate [Left P ulse Oximeter] 98 98 Pulse Rate [Pulse Oximeter] Respiratory Rate 16 18 18 Blood Pressure [Ri ght Arm] 150/121 H 150/121 H Blood Pressure [Ri ght Upper Arm] Pulse Oximetry 97 97 97 Oxygen Delivery Me thod Room Air Room Air Room Air 09/06/24 22:00 09/06/24 22:00 09/06/24 23:00 Temperature 98.7 F 98.7 F Pulse Rate 113 H Pulse Rate [Left P ulse Oximeter] 109 H 68 Pulse Rate [Pulse Oximeter] Respiratory Rate 16 18 Blood Pressure [Ri ght Arm] 165/116 H 143/79 H Blood Pressure [Ri ght Upper Arm] Pulse Oximetry [address]od Room Air Room Air 09/06/24 23:00 09/06/24 23:00 09/07/24 02:40 Temperature 98.4 F Pulse Rate Pulse Rate [Left P ulse Oximeter] 103 H 96 Pulse Rate [Pulse Oximeter] Respiratory Rate 16 Blood Pressure [Ri ght Arm] 141/110 H Blood Pressure [Ri ght Upper Arm] Pulse Oximetry 100 98 Oxygen Delivery Me thod Room Air 09/07/24 07:00 Temperature 98.4 F Pulse Rate Pulse Rate [Left P ulse Oximeter] 96 Pulse Rate [Pulse Oximeter] Respiratory Rate 16 Blood Pressure [Ri ght Arm] 154/108 H Blood Pressure [Ri ght Upper Arm] Pulse Oximetry 99 Oxygen Delivery Me thod Room Air Labs Labs: Laboratory Results - last 24 hr 09/06/24 09/06/24 09/06/24 16:14 19:15 20:36 WBC 7.13 RBC 3.77 L Hgb 13.1 L Hct 38.5 MCV 102 H MCH 35 H MCHC 34 RDW Coeff of Thomas 10.9 L Plt Count 213 Neut % (Auto) 71.8 Lymph % (Auto) 19.2 L Stanly % (Auto) 8.6 Eos % (Auto) 0.0 Baso % (Auto) 0.3 Neut # (Auto) 5.12 Lymph # (Auto) 1.40 Stanly # (Auto) 0.60 Eos # (Auto) 0.00 Baso # (Auto) 0.02 Abs Immat Gran (auto) 0.01 Imm/Tot Granulo (auto) 0.1 Sodium 142 Potassium 3.7 Chloride 105 Carbon Dioxide 16 L Anion Gap 21 H BUN 7 Creatinine 0.8 Estimated Creat Clear 158.44 Estimated GFR 121 Glucose 109 Lactate Calcium 8.7 Magnesium 1.1 L Total Bilirubin 1.0 AST 90 H ALT 50 Alkaline Phosphatase 107 Total Protein 7.1 Albumin 4.4 Lipase 3467 H Urine Color Yellow Urine Appearance Clear Urine pH 6.0 Ur Specific [place] 1.010 Urine Protein Negative Urine Glucose (UA) Negative Urine Ketones 2+ A Urine Blood Negative Urine Nitrite Negative Urine Bilirubin Negative Urine Urobilinogen 0.2 Ur Leukocyte Esterase Negative Urine RBC 0-2 Urine WBC 2-5 Ur Squamous Epith Cells Few Urine Bacteria None Urine Opiates Screen POSITIVE A Ur Oxycodone Screen Negative Urine Methadone Screen Negative Ur Barbiturates Screen Negative U Tricyclic Antidepress Negative Ur Phencyclidine Scrn Negative Ur Amphetamines Screen Negative U Methamphetamines Scrn Negative U Benzodiazepines Scrn Negative Urine Cocaine Screen Negative U Marijuana (THC) Screen Negative Ur Drug Screen Comment See Note Ethyl Alcohol 0.12 H SARS-CoV-2 (PCR) Influenza Type A (PCR) Influenza Type B (PCR) RSV (PCR) Lab Acknowledgement 09/06/24 09/06/24 09/07/24 20:41 Unknown 05:47 WBC RBC Hgb Hct MCV MCH MCHC RDW Coeff of Thomas Plt Count Neut % (Auto) Lymph % (Auto) Stanly % (Auto) Eos % (Auto) Baso % (Auto) Neut # (Auto) Lymph # (Auto) Stanly # (Auto) Eos # (Auto) Baso # (Auto) Abs Immat Gran (auto) Imm/Tot Granulo (auto) Sodium 135 Potassium 3.7 Chloride 100 Carbon Dioxide 29 Anion Gap 6 L BUN 4 L Creatinine 0.7 Estimated Creat Clear 176.14 Estimated GFR 126 Glucose 132 H Lactate 0.8 Calcium 8.2 L Magnesium Total Bilirubin AST ALT Alkaline Phosphatase Total Protein Albumin Lipase 3714 H Urine Color Urine Appearance Urine pH Ur Specific [place] Urine Protein Urine Glucose (UA) Urine Ketones Urine Blood Urine Nitrite Urine Bilirubin Urine Urobilinogen Ur Leukocyte Esterase Urine RBC Urine WBC Ur Squamous Epith Cells Urine Bacteria Urine Opiates Screen Ur Oxycodone Screen Urine Methadone Screen Ur Barbiturates Screen U Tricyclic Antidepress Ur Phencyclidine Scrn Ur Amphetamines Screen U Methamphetamines Scrn U Benzodiazepines Scrn Urine Cocaine Screen U Marijuana (THC) Screen Ur Drug Screen Comment Ethyl Alcohol SARS-CoV-2 (PCR) Negative SARS-CoV-2 Influenza Type A (PCR) Negative PCR FLU A Influenza Type B (PCR) Negative PCR FLU B RSV (PCR) Negative PCR RSV Lab Acknowledgement Test Added
[2024-09-07] MEDS: MAGNESIUM IV 2 GM/50 ML PIGGYBACK IVPB (09:39)
[2024-09-07] MEDS: polyethylene glycoL 3350 17 GM PACK PO (17:47)
--- NOTE | 2024-09-07 18:09 | PC.NURSE ---
End of shift [id number]: AxOx4, calm, and cooperative to cares. Afebrile. Pt reports left flank pain that was managed with PRN medication, reposition, and a calm environment. Pt reported itchiness in the AM, relieved with PRN Benadryl. Pt up SBA. Continent of the bladder. Does not use call light appropriately, setting off bed alarm frequently. Pt NPO for majority of the shift awaiting ultrasound. Salvador PARRA advanced Pt to reg diet and SL. Pt has water, juice, and applesauce at bedside. Pt hesitant to intake fluids/food due to feeling achy. Pt requested PRN Miralax. Pt not passing gas and awaiting BM. Pt appears resting watching television with call light in reach.
[2024-09-07] MEDS: OXYCODONE 5 MG TABLET PO ×2 (20:25→23:36)
[2024-09-08] VITALS (12 sets, daily range): BP systolic 115–169; BP diastolic 72–114; PULSE 79–101; RESP 16–18; TEMP 36.6–37.1; O2SAT 96–100
[2024-09-08] MEDS: ACETAMINOPHEN 325 MG TABLET 650 MG PO ×3 (03:01→15:00)
[2024-09-08] MEDS: diphenhydrAMINE 25 MG CAPSULE PO ×3 (03:02→22:46)
[2024-09-08] MEDS: OXYCODONE 5 MG TABLET PO ×4 (03:02→20:59)
[2024-09-08 06:42] LABS: Chloride* 97 mmol/L (96-114)
[2024-09-08 06:43] LABS: Potassium* 3.9 mmol/L (3.6-5.1); Sodium* 134 mmol/L (135-149)
[2024-09-08] MEDS: DOCUSATE SODIUM 100 MG CAPSULE PO ×2 (06:44→21:01)
[2024-09-08 06:46] LABS: Anion Gap 4 mEq/L (7-15); Carbon Dioxide* 33 mmol/L (20-32); Creatinine* 0.8 mg/dL (0.5-1.5); Est. Creatinine Clearance* 154.13; Estimated Glomerular Filt Rate 121 ml/min; Glucose* 106 mg/dL (60-115)
[2024-09-08 07:09] LABS: Blood Urea Nitrogen* < 2 mg/dL (5-24)
--- NOTE | 2024-09-08 07:24 | PC.NURSE ---
Pt is alert and oriented x3. Afebrile. Pt reports 7-8/10 left flank pain,?managed with PRN medication and heating pad. Pt reported mild itching, managed with PRN Benadryl. Pt voiding, tolerating a regular diet. Pt had high blood pressure overnight, pt denies headache, SOB, chest pain, and N/V, BP in morning was 120/77. Pt had no BM overnight, Gave PRN Senna. Pt removed telemetry monitoring, refused request to put it back on ?I don?t need it? RN gave education on importance of heart monitoring with pancreatitis, pt gave verbal understanding?and refused updated MD Head. ?
[2024-09-08 07:29] LABS: Lipase* 517 U/L (23-300)
[2024-09-08] MEDS: MULTIVITAMIN/MINERALS 1 TABLET 1 TAB PO (09:14)
[2024-09-08] MEDS: THIAMINE 100 MG TABLET 250 MG PO ×2 (09:14→21:00)
[2024-09-08] MEDS: SODIUM CHLORIDE 0.9 % (FLUSH) 10 ML SYRINGE 5 ML IVF (09:14)
[2024-09-08 09:35] LABS: Magnesium* 1.7 mg/dL (1.5-2.6)
--- NOTE | 2024-09-08 10:57 | PM.IMPN1 ---
Progress Note: A&P Assessment and plan (1) Alcoholic pancreatitis: Problem details: - IVFs -discontinued, antiemetics and pain management - gallbladder ultrasound 09/07 shows distended gallbladder with multiple mobile gallstones. No ultrasound findings of acute cholecystitis - labs reassuring with the exception of hypomagnesemia on 09/07, replacing IV, improved to 1.7 - slowly advance diet and transition to oral analgesia - encourage ambulation Status: Acute (2) Alcohol withdrawal: Problem details: - received Phenobarbital x1 09/06 - CIWA scores remain 2-4 since admission Status: Acute (3) Alcohol use disorder: Problem details: - motivated to quit using, SW referral placed to assist with resources Status: Acute (4) Cholelithiasis: Problem details: - ultrasound 09/07 shows Distended gallbladder with multiple mobile gallstones. No ultrasound findings of acute cholecystitis - discussed with General White, Dr. Packer, recommends outpatient follow-up in general surgery clinic to discuss Status: Acute (5) Peripheral neuropathy: Problem details: - presumably 08/13 ETOH use, on thiamine and MVI Status: Acute Plan - per above - discussed hopeful discharge home on Wednesday Time Spent With Patient Total time spent: Today I spent 45 minutes seeing the patient, discussing the patient with ER staff, reviewing Expanse and Epic notes/diagnostics, discussing the care plan with our team that includes social work, PT/OT, pharmacy, RT, intermediate and documenting my impressions and plan in the medical record. Subjective Date Seen: 09/08/24 Interval history: Patient is seen lying in bed, on his right side, as this is more comfortable. Lying on his left side causes more abdominal pain. Tells me this episode of pancreatitis has been worse than the previous episodes. Does not feel he is recovering as quickly. No nausea. Continues to have abdominal discomfort when attempting solids. Yesterday reports not passing gas, no bowel movement. Remains afebrile. Gallbladder ultrasound completed, showing multiple mobile stones. No evidence of cholecystitis. Exam Narrative: Exam Narrative: PHYSICAL EXAM General: Pleasant, conversant, NAD HEENT: Normocephalic, atraumatic, sclera white, EOMI, oral mucosa moist Cardiovascular: RRR, S1S2. No pitting edema Pulmonary: CTA bilaterally without rhonchi, rales, expiratory wheezes. No dyspnea Abdominal: Soft, nondistended, pain on palpation over mid epigastric, right upper quadrant, left upper quadrant regions. No guarding Neurological: Alert, answering questions appropriately, cranial nerves intact, no focal findings Extremities: No gross joint deformity or swelling. AROMI. Neurovascularly intact Skin: Warm, dry. Const: Vital Signs, click to edit/add: Vital Signs - 24 hr 09/07/24 11:00 09/07/24 14:33 09/07/24 15:00 Temperature 98.7 F 98.7 F Pulse Rate Pulse Rate [Left P ulse Oximeter] 93 95 Respiratory Rate 16 18 Blood Pressure [Ri ght Arm] 152/105 H 157/116 H Pulse Oximetry 99 99 99 Oxygen Delivery Me thod Room Air Room Air 09/07/24 15:00 09/07/24 19:30 09/07/24 23:00 Temperature 98.6 F 99.1 F Pulse Rate 87 Pulse Rate [Left P ulse Oximeter] 87 80 Respiratory Rate 16 18 Blood Pressure [Ri ght Arm] 140/93 H 158/119 H Pulse Oximetry 99 97 Oxygen Delivery Or thod Room Air Room Air 09/07/24 23:00 09/08/24 00:11 09/08/24 03:00 Temperature 98.6 F Pulse Rate 79 Pulse Rate [Left P ulse Oximeter] 83 Respiratory Rate 16 Blood Pressure [Ri ght Arm] 169/114 H Pulse Oximetry 97 97 Oxygen Delivery Or thod Room Air 09/08/24 06:48 09/08/24 07:00 09/08/24 09:07 Temperature 98.7 F 98.7 F Pulse Rate Pulse Rate [Left P ulse Oximeter] 81 81 81 Respiratory Rate 16 16 16 Blood Pressure [Ri ght Arm] 120/77 120/77 Pulse Oximetry 96 96 Oxygen Delivery Or thod Room Air Room Air Labs Labs: Laboratory Results - last 24 hr 09/08/24 09/08/24 06:07 09:15 Sodium 134 L Potassium 3.9 Chloride 97 Carbon Dioxide 33 H Anion Gap 4 L BUN < 2 L Creatinine 0.8 Estimated Creat Clear 154.13 Estimated GFR 121 Glucose 106 Calcium 9.0 Magnesium 1.7 Lipase 517 H Lab Acknowledgement Test Added
--- NOTE | 2024-09-08 11:44 | NUTR.NU ---
RDN with diet education related to pancreatitis. Patient admitted with abdominal pain, found to have alcoholic pancreatitis and cholelithiasis. Current weight 242lb 9oz; height 6ft 2in; BMI 31.1 kg/m2. Current diet is Regular. Patient slowly advancing diet. RDN visited with patient whom reported trying strawberries today. He reported having bloating at this. Offered diet education related to pancreatitis. Patient agreed. Patient was provided diet education on a low fat diet. Discussed foods to include and foods to avoid. Education also provided following a low fat diet (about 60 grams/day) long-term. Also discussed abstinence from alcohol. Verbal and written information as well as a sample menu provided from [facility]. Patient verbalized understanding. RDN's contact information was provided and patient was encouraged to contact RDN with questions.
--- NOTE | 2024-09-08 17:05 | PC.NURSE ---
End of shift-- Pt is pleasant, alert and oriented. VSS and pt is afebrile. SPO2 maintained >94% on RA. Pain appears well managed with PRN Oxycodone and Tylenol. Pt states that pain is improved but has continuously rated pain from 4-6 out of 10. He states that pain is on left side of abdomen and increases with ambulation and following PO intake. He denied any nausea and ate small amounts of a regular diet including fruit, juice and popsicles. BS + x4. Pt denied passing flatus and states that he has had no BM for days. He was given Colace per overnight nurse and Miralax last evening per report. Pt was given Prune juice and encouraged to increase liquids and ambulate. Pt did ambulate in hallway with great encouragement and stated that pain improved some following. He has refused Telemetry and continuous pulse ox today. is aware. Urine is dark and pt has voided only about 120mls today. Girlfriend Daly is at bedside and appears loving and supportive. Report to PATRICK Wesley.
--- NOTE | 2024-09-08 19:22 | PC.NURSE ---
Picked up at 1630: Pt alert, oriented and vitally stable. Encouraged and educated pt to walk and push fluids. Pt states not currently having pain. Pt in bed, appears to be resting, call light within reach.
--- NOTE | 2024-09-09 05:23 | PC.NURSE ---
shift note: vss stable. pt medicated for 4/10 abd pain with relief. PRN benadryl given for itching. Last BM stated 09/04/24. CIWA 3,2.
[2024-09-09 07:00] VITALS: BP 129/74; PULSE 77; RESP 16; TEMP 36.9; O2SAT 98
[2024-09-09 07:29] LABS: Chloride* 96 mmol/L (96-114); Potassium* 3.3 mmol/L (3.6-5.1); Sodium* 131 mmol/L (135-149)
[2024-09-09 07:32] LABS: Anion Gap 8 mEq/L (7-15); Blood Urea Nitrogen* 3 mg/dL (5-24); Calcium* 8.4 mg/dL (8.4-10.6); Carbon Dioxide* 27 mmol/L (20-32); Creatinine* 0.6 mg/dL (0.5-1.5); Estimated Glomerular Filt Rate 132 ml/min; Glucose* 103 mg/dL (60-115)
[2024-09-09] MEDS: DOCUSATE SODIUM 100 MG CAPSULE PO (09:05)
[2024-09-09] MEDS: OXYCODONE 5 MG TABLET PO (09:05)
[2024-09-09] MEDS: SODIUM CHLORIDE 0.9 % (FLUSH) 10 ML SYRINGE 5 ML IVF (09:05)
[2024-09-09] MEDS: THIAMINE 100 MG TABLET 250 MG PO (09:05)
[2024-09-09] MEDS: MULTIVITAMIN/MINERALS 1 TABLET 1 TAB PO (09:05)
--- NOTE | 2024-09-09 09:45 | PM.DS1 ---
DS: Providers Provider Time Seen by Provider: 09:38 Date Seen: 09/09/24 Date of admission: 09/06/24 20:53 Primary care physician: Not a Local Provider Admitting Clinician: Salomon Franco MD Consults: 09/06/24 21:06 Consult to Stove Polisher [CONS] Routine Comment: Reason for Consult:: Discharge Planning Needs Attending Physician on discharge: Mary Jane Finney MD Date of Discharge: 09/09/24 DS: Diagnosis Discharge Diagnosis (1) Alcoholic pancreatitis: Status: Acute Problem details: - IVFs -discontinued, antiemetics and pain management - gallbladder ultrasound 09/07 shows distended gallbladder with multiple mobile gallstones. No ultrasound findings of acute cholecystitis - labs reassuring with the exception of hypomagnesemia on 09/07, replacing IV, improved to 1.7 - slowly advance diet and transition to oral analgesia - encourage ambulation - 09/09 ate regular diet well yesterday. Some pain yet today. Would like to go home. (2) Alcohol use disorder: Status: Acute Problem details: - motivated to quit using, SW referral placed to assist with resources - 09/09 states he is done drinking. Discussed the importance of abstinence in the setting of recurrent alcoholic pancreatitis (3) Alcohol withdrawal: Status: Acute Problem details: - received Phenobarbital x1 09/06 - CIWA scores remain 2-4 since admission (4) Cholelithiasis: Status: Acute Problem details: - ultrasound 09/07 shows Distended gallbladder with multiple mobile gallstones. No ultrasound findings of acute cholecystitis - discussed with General Christopher, Dr. Packer, recommends outpatient follow-up in general surgery clinic to discuss - 09/09 I discussed these results and recommendation with patient (5) Peripheral neuropathy: Status: Acute Problem details: - presumably 2/2 ETOH use, on thiamine and MVI (6) Hypokalemia: Status: Acute Problem details: - replaced orally DS: Summary Hospital Course Hospital Course: Per H&P: Tyshawn Hurt is a 34 year old male with history of alcohol use disorder, alcoholic hepatitis and alcoholic pancreatitis admitted through the emergency department with a 2 day history of epigastric and left flank pain. Patient reports previous history of similar symptoms with alcoholic pancreatitis in the past. He reports heavy daily drinking. He drinks a 5th of Tequila in 1-2 days. He has had recurrent vomiting and been unable to keep down food for last 2 days. He has not had bloody emesis. No bowel movement for the past 2 to 3 days. He has been able to keep down some alcohol and water. He reports he has some alcohol withdrawal. He is currently feeling tremulous. In April he had pneumonia and stop drinking for a couple weeks and did okay without being hospitalized for it. Arbery abdominal bloating with clears and ongoing constipation on hospital day 2. CIWA scores remained low. By hospital day 3. He was improving, continued to have pain, but able to tolerate a general diet. Today he continues to have some abdominal pain, but is overall improved and able to tolerate a general diet without nausea or vomiting. She was scores remain low. He is discharged home in improved condition. I have spoken with him about the importance of abstinence from alcohol, no driving while taking pain medications, using mostly Tylenol or ibuprofen for pain and that he will only be getting 5 tablets of oxycodone and should use these sparingly. No driving while using oxycodone. I also spoke with him about the recommendation to follow-up as an outpatient with General surgery for cholelithiasis. Patient demonstrated understanding of these recommendations. Time Spent with Patient Time attestation: Total time spent providing and/or coordinating discharge services: Exam Narrative: Exam Narrative: General: No acute distress. Awake, alert, oriented x3. No pallor. No jaundice. Oropharynx: Clear. Mucous membranes moist. Cardiovascular: Regular rate and rhythm. No murmurs, gallops, or rubs. Respiratory: Clear to auscultation bilaterally. No wheezes or crackles. Abdomen: Bowel sounds present. Soft, nondistended, mildly tender in the epigastrium. No rebound tenderness. Extremities: No lower extremity edema. Const: Vital Signs, click to edit/add: Vital Signs - 24 hr 09/08/24 11:00 09/08/24 11:33 09/08/24 15:00 Temperature 98.4 F 98.4 F Pulse Rate [Left P ulse Oximeter] 80 80 101 H Respiratory Rate 18 18 16 Blood Pressure [Ri ght Arm] 115/72 115/72 124/91 H Pulse Oximetry 97 97 98 Oxygen Delivery Me thod Room Air Room Air Room Air 09/08/24 15:00 09/08/24 15:00 09/08/24 19:00 Temperature 98.4 F 97.8 F Pulse Rate [Left P ulse Oximeter] 101 H 101 H 87 Respiratory Rate 16 16 18 Blood Pressure [Ri ght Arm] 124/91 H 138/90 H Pulse Oximetry 98 100 Oxygen Delivery Me thod Room Air Room Air 09/08/24 21:04 09/08/24 22:42 09/08/24 23:00 Temperature 97.8 F 98.8 F 98.8 F Pulse Rate [Left P ulse Oximeter] 87 90 90 Respiratory Rate 18 18 18 Blood Pressure [Ri ght Arm] 138/90 H 136/96 H 136/96 H Pulse Oximetry 100 100 100 Oxygen Delivery Me thod Room Air Room Air Room Air 09/09/24 07:00 Temperature 98.5 F Pulse Rate [Left P ulse Oximeter] 77 Respiratory Rate 16 Blood Pressure [Ri ght Arm] 129/74 Pulse Oximetry 98 Oxygen Delivery Me thod Room Air DS: Data Data Completed and Pending Completed studies during hospitalization: Ordering Physician: Moe Villasenor M.D. Date of Service: 09/06/24 Procedure(s): CT abdomen pelvis w con Accession Number(s): [id number] cc: Moe Villasenor M.D.; Provider,Not a Local~ For Patients: As a result of the Century Cures Act, medical imaging exams and procedure reports are released immediately into your electronic medical record. You may view this report before your referring provider. If you have questions, please contact your health care provider. INDICATION: Abdominal pain and left flank pain. History of pancreatitis. COMPARISON: None. TECHNIQUE: CT of the abdomen and pelvis with intravenous contrast (120 milliliters Isovue 370). FINDINGS: Lung bases: No pleural effusion. Liver: Smooth hepatic contour. There is hepatic steatosis. There are a few indeterminate hyperattenuating hepatic lesions the largest of which is a 11 millimeter lesion in the left hepatic lobe (2/46). Gallbladder and biliary tree: The gallbladder is distended and there is cholelithiasis. No pericholecystic edema. Unremarkable CT appearance of the intrahepatic and extrahepatic biliary tree. Spleen: No splenomegaly. Pancreas: There is mild peripancreatic edema. Slightly heterogeneous attenuation of the pancreas. No definite nonenhancing portions of the pancreas to suggest necrosis. Adrenal glands: Normal. Kidneys and ureters: No hydroureteronephrosis. 15 millimeter simple appearing left interpolar exophytic renal cyst. Bladder: Unremarkable CT appearance. Visualized reproductive organs: Unremarkable CT appearance. Gastrointestinal tract: No focal abnormally dilated loops of bowel. Normal appendix. Peritoneal cavity: No free fluid or free air. Lymph nodes: No enlarged abdominal or pelvic lymph nodes by CT size criteria. Vessels: No abdominal aortic aneurysm. Abdominal and pelvic wall: Normal. Bones: There are osseous degenerative changes. Mild anterior vertebral body wedging centered at the thoracolumbar junction. IMPRESSION: 1. Acute interstitial edematous pancreatitis. 2. Distended gallbladder with cholelithiasis. No pericholecystic edema. Consider further evaluation with gallbladder ultrasound. 3. Hepatic steatosis. Few indeterminate hyperattenuating hepatic lesions the largest of which is a 11 millimeter lesion in the left hepatic lobe. Recommend further evaluation with a nonemergent contrast-enhanced MRI of the liver. Please note that all CT scans at this facility use dose modulation, iterative reconstruction, and/or weight-based dosing when appropriate to reduce radiation dose to as low as reasonably achievable. Dictated by Faraz Gutierrez MD @ 09/06/2024 8:06:15 PM (Electronically Signed) Ordering Physician: Arely Vora M.D. Date of Service: 09/07/24 Procedure(s): US gallbladder Accession Number(s): [id number] cc: Arely Vora M.D.; Provider,Not a Local~ For Patients: As a result of the Century Cures Act, medical imaging exams and procedure reports are released immediately into your electronic medical record. You may view this report before your referring provider. If you have questions, please contact your health care provider. Indication: Pancreatitis plus gallstone Technique: Limited ultrasound examination of the bladder is obtained. Comparison: CT abdomen and pelvis September 06, 2024 Findings: Gallbladder is distended without pericholecystic fluid or edematous wall thickening. GB wall thickness measures 1 millimeter. Multiple mobile gallstones are identified. CBD is within normal limits and measures 5 millimeter. Positive Guy`s sign at the time of ultrasound exam. Pancreas is obscured by bowel gas. Impression: Distended gallbladder with multiple mobile gallstones. No ultrasound findings of acute cholecystitis. Dictated by Ye Mercedes MD @ 09/07/2024 3:56:11 PM (Electronically Signed) Labs on day of discharge: Labs from last 24 hours 09/09/24 06:32 Sodium 131 L Potassium 3.3 L Chloride 96 Carbon Dioxide 27 Anion Gap 8 BUN 3 L Creatinine 0.6 Estimated Creat Clear 205.50 Estimated GFR 132 Glucose 103 Calcium 8.4 Discharge Plan Discharge Disposition: Home, Self-Care Date of Admission: 09/06/24 20:53 Attending Provider on Discharge: Mary Jane Finney Primary Care Provider: Provider,Not a Local Condition: Improved Anticipated Discharge Date/Time: 09/09/24 11:05 Discharge Medications: New oxycodone 5 mg Tablet 5 mg PO Q6H PRNQty: 5 0RF thiamine mononitrate (vit B1) [Vitamin B-1 (mononitrate)] 100 mg Tablet 250 mg PO BID Qty: 90 0RF multivitamin with folic acid [Thera] 400 mcg Tablet 1 tab PO DAILY Qty: 30 0RF No Action No Known Home Medications Discharge Orders: Discharge Order (Routine); Ordered 09/09/24 Ordered By: Mary Jane Finney Additional Instructions: - Use OTC acetaminophen and ibuprofen as needed for pain. Use oxycodone only for breakthrough pain. Your pain should continue to improve and you should not need narcotic pain medication for more than another day or so. - Do not drive while using narcotics. - Avoid all alcohol use. - F/u with Dr. Packer, general surgery for cholelithiasis in 1-2 weeks. Activity Level: No Restrictions Discharge Diet: Regular Follow Up Appointments: General Surgery, [facility] [Provider Group] (Follow up gallstone findings) Provider,Not a Local [Primary Care Provider] - Forms: Spreadsave Info Instructions
--- NOTE | 2024-09-09 13:06 | PC.NURSE ---
DC: pt alert, oriented and vitally stable. Pt educated and encouraged to walk the halls. Pt rated pain 4/10, prn oxy given, pt stated improvement. DC education given to pt, topics including alcohol cessation, diet and follow up. Pt had no IV. Pt dc home at 1227.
== END 2024-09-09 12:27 | disposition home or self-care (01) | DRG 439 ==
LOC: ED 19:13 → MEDSURG 20:53
PROVIDERS: Family Medicine; Physician Assistant; Admitting Provider Family Medicine; Emergency Provider Emergency Medicine; Visit Provider Family Medicine
DX: K85.20 Alcohol induced acute pancreatitis without necrosis or infection (principal); F10.239 Alcohol dependence with withdrawal, unspecified; F10.288 Alcohol dependence with other alcohol-induced disorder; K70.0 Alcoholic fatty liver; K70.10 Alcoholic hepatitis without ascites; F10.229 Alcohol dependence with intoxication, unspecified; Y90.6 Blood alcohol level of 120-199 mg/100 ml; G62.1 Alcoholic polyneuropathy; K80.20 Calculus of gallbladder without cholecystitis without obstruction; E87.6 Hypokalemia; F12.90 Cannabis use, unspecified, uncomplicated; F17.290 Nicotine dependence, other tobacco product, uncomplicated
CPT/HCPCS: 36415; 74177; 76705; 80048; 80053; 80306; 81001; 82077; 83605; 83690; 83735; 85025; 87631; 99284; 99285; A9153; A9270; J1171; J1885; J2405; J2560; J3360; J3411; J3475; J7030; Q9967

== ENCOUNTER 2024-10-13 13:45 | Outpatient (CLI) | payer MEDICAID, SELFPAY | END 2024-10-13 13:46 | disposition home or self-care (01) | PROVIDERS: PCP Internal Medicine; Visit Provider Nurse Practitioner Family | DX: Z01.818 Encounter for other preprocedural examination (principal); K85.20 Alcohol induced acute pancreatitis without necrosis or infection | CPT/HCPCS: 80053; 82150; 85025 ==

== ENCOUNTER 2024-10-16 08:57 | Day surgery (SDC) | payer OTHER, SELFPAY ==
[2024-10-16] MEDS: LACTATED RINGERS 1000 ML 1,000 ML 100 ML IV (09:05)
[2024-10-16 09:16] VITALS: BP 153/93; PULSE 70; RESP 16; TEMP 36.6; O2SAT 99; BMI 35.0
[2024-10-16] MEDS: SODIUM CHLORIDE 0.9 % (FLUSH) 10 ML SYRINGE IVF (09:22)
--- NOTE | 2024-10-16 10:02 | SUR.PREOP ---
procedure cancelled by
== END 2024-10-16 10:04 | disposition home or self-care (01) ==
LOC: OR 08:58
PROVIDERS: PCP Internal Medicine; Visit Provider Surgery
PROC: 0FT44ZZ Resection of Gallbladder, Percutaneous Endoscopic Approach (ICD-10-PCS; CPT 47562; principal; 2024-10-16 10:15)
DX: Z53.9 Procedure and treatment not carried out, unspecified reason (principal)
CPT/HCPCS: J7120

== ENCOUNTER 2024-10-17 08:26 | Day surgery (SDC) | payer OTHER, SELFPAY ==
[2024-10-17] VITALS (14 sets, daily range): BP systolic 122–175; BP diastolic 73–128; PULSE 58–95; RESP 16–18; TEMP 36.3–37.1; O2SAT 95–100; BMI 35.0
[2024-10-17] MEDS: LACTATED RINGERS 1000 ML 1,000 ML 100 ML IV (06:55)
[2024-10-17] MEDS: SODIUM CHLORIDE 0.9 % (FLUSH) 10 ML SYRINGE IVF (08:42)
--- NOTE | 2024-10-17 08:49 | W.PM.H&PU ---
History & Physical Update History & Physical Update H&P Reviewed and patient assessed: No changes noted
--- NOTE | 2024-10-17 08:51 | P.GSOP_ITS ---
Operative Note Date of procedure: 10/17/24 Pre-op diagnosis: 1. Biliary colic with gallstone pancreatitis. Post-op diagnosis: Same Type of Procedure: 1. Laparoscopic cholecystectomy. Indications: 34-year-old male was seen in clinic for evaluation of gallbladder disease. Patient was recently hospitalized with pancreatitis that was thought to be due to alcohol intake. Upon his workup on abdominal CT he was noted to have distended gallbladder. There was no evidence of pericholecystic inflammation. A gallbladder ultrasound was obtained that showed cholelithiasis, the gallbladder wall was 1 mm thick the common bile duct was measured at 5 mm. Patient complained of continued intermittent pain in epigastrium radiating to the left upper quadrant. He felt like the fried food usually increased the pain. He serrated to avoid fried food. He also stopped drinking alcohol. On clinical exam he had mild tenderness to palpation in epigastrium and left upper quadrant with negative Guy sign. Given patient's clinical history and his recent episode of acute pancreatitis that could be due to alcohol intake or gallstone pancreatitis, laparoscopic cholecystectomy was recommended. The procedure was discussed in detail. The risks associated procedure including infection, bleeding, injury to intra-abdominal organs, and injury to the common bile duct were all discussed with the patient, and he agreed to proceed. Procedure Description: After discussing the risks and benefits of the procedure, the patient signed informed consent.? The operative site was marked and the patient was brought to the operating room and placed on the operating table in supine position.? Care was taken to pad the patient's pressure points.?? The patient was then intubated by anesthesia.?? The operative site was then prepped and draped in the usual sterile fashion.? A time-out was then performed. A 5-mm laparoscopy port was placed in the left upper quadrant guided by a 5-mm laparoscope placed into a translucent trochar.~ Passage through the layers of the abdominal wall was visualized with the laparoscope.~ A pneumoperitoneum was established. A 0-degree 5-mm laparoscope was advanced into the abdomen. The abdomen was briefly surveyed, and no adhesions were noted. A 10-mm port were placed supraumbilically and two more 5 mm ports were placed on the right under direct visualization by laparoscope. The camera was then changed to 10 mm 30- degree scope and placed into the abdomen through the 10 mm port. The left upper quadrant port entrance was examined and no injury to intra-abdominal organs was identified. The gallbladder was identified, the fundus grasped and retracted cephalad. The infundibulum was grasped and retracted laterally, exposing the peritoneum overlying the triangle of Calot. This was then divided and exposed in a blunt fashion and with hook cautery. Common bile duct was not identified but care was taken not to injure it. The cystic duct was clearly identified and bluntly dissected circumferentially. Cystic artery was identified and tissues around it were dissected off. In the posterior gallbladder fossa small veins were clipped with 5 mm clips on the patient's side and divided with cautery to prevent bleeding. The cystic artery and the cystic duct were clearly going into the gallbladder. The cystic duct was first clipped with two 5 mm clips on the patient's side and a single clip on the specimen side and divided between the clips. This allowed for further visualization of the cystic duct going into the gallbladder. The cystic duct was then doubly ligated with surgical clips on the patient's side and singly clipped on the gallbladder side and divided. The gallbladder was dissected from the liver bed in retrograde fashion using hookcautery. The gallbladder was placed into an Endo-Catch bag and removed through the supraumbilical incision. Had to enlarge the fascial incision of the supraumbilical incision with cautery to accommodate removal of the gallbladder. Surgical site was examined for bleeding. No bleeding was seen in the surgical field. The fascia of the supraumbilical incision was then closed with 0-0 vicryl using Quinton Bishop needle under direct visualization. Pneumoperitoneum was completely reduced after viewing removal of the trocars under direct vision. The skin was then closed with 4-0 monocryl and steristrips were applied. Instrument, sponge, and needle counts were correct at closure and at the conclusion of the case. The patient was transferred to PACU in stable condition. Findings: No acute inflammation around the gallbladder was noted. Anesthesia: GETA Surgeon: Gail Packer MD Estimated blood loss (mL): 5 Specimen: Gallbladder Condition: stable Disposition: PACU
[2024-10-17] MEDS: CEFAZOLIN 1 GM inj IVP (09:17)
--- NOTE | 2024-10-17 09:38 | P.ANES_ITS ---
Anesthesia Charges Start Date/Time Anesthesia Start Date: 10/17/24 Anesthesia Start Time: 09:10 Stop Date/Time Anesthesia Stop Date: 10/17/24 Anesthesia Stop Time: 10:37 Coding CPT Codes CPT Codes: ANESTH SURG UPPER ABDOMEN - 62061 ([id number]) P3 - PATIENT W/SEVERE SYS DISEASE, QK - WASHER CUTTER 2-4 CNCRNT ANES PROC, QX - HIRE CAR DRIVER SVC W/ MD MED DIRECTION
--- NOTE | 2024-10-17 09:38 | W.ANESCHARGE ---
Anesthesia Charges Start Date/Time Anesthesia Start Date: 10/17/24 Anesthesia Start Time: 09:10 Stop Date/Time Anesthesia Stop Date: 10/17/24 Anesthesia Stop Time: 10:37 Coding CPT Codes CPT Codes: ANESTH SURG UPPER ABDOMEN - 50331 ([id number]) P3 - PATIENT W/SEVERE SYS DISEASE, QK - ATTENDANT SELF SERVICE STORE 2-4 CNCRNT ANES PROC, QX - SOFTWARE DEVELOPMENT INTERN SVC W/ MD MED DIRECTION
[2024-10-17] MEDS: LIDOCAINE 1%-EPI 1:100,000 20 ML INFILTRATI (10:17)
[2024-10-17] MEDS: BUPIVACAINE 0.25% 30 ML INJECTION (10:17)
[2024-10-17] MEDS: fentaNYL 100 MCG/2 ML inj 50 MCG IVP ×3 (10:45→11:00)
--- NOTE | 2024-10-17 10:45 | P.ANES_ITS ---
Anesthesia Charges Start Date/Time Anesthesia Start Date: 10/17/24 Anesthesia Start Time: 09:10 Stop Date/Time Anesthesia Stop Date: 10/17/24 Anesthesia Stop Time: 10:37 Coding CPT Codes CPT Codes: ANESTH SURG UPPER ABDOMEN - 21032 ([id number]) QK - SAMPLE DYE MIXER 2-4 CNCRNT ANES PROC, QX - TOWN MANAGER SVC W/ MD MED DIRECTION, P3 - PATIENT W/SEVERE SYS DISEASE
--- NOTE | 2024-10-17 10:45 | W.ANESCHARGE ---
Anesthesia Charges Start Date/Time Anesthesia Start Date: 10/17/24 Anesthesia Start Time: 09:10 Stop Date/Time Anesthesia Stop Date: 10/17/24 Anesthesia Stop Time: 10:37 Coding CPT Codes CPT Codes: ANESTH SURG UPPER ABDOMEN - 79770 ([id number]) QK - CONSUMER SCIENCE TEACHER 2-4 CNCRNT ANES PROC, QX - MANAGER AGRICULTURAL SVC W/ MD MED DIRECTION, P3 - PATIENT W/SEVERE SYS DISEASE
[2024-10-17] MEDS: hydrOXYzine pamoate 25 MG CAPSULE PO (11:39)
[2024-10-17] MEDS: OXYCODONE 5 MG TABLET PO (11:40)
[2024-10-17] MEDS: KETOROLAC 15 MG/ML inj IVP (13:08)
== END 2024-10-17 13:09 | disposition home or self-care (01) ==
PROVIDERS: PCP Internal Medicine; Visit Provider Surgery
PROC: 0FT44ZZ Resection of Gallbladder, Percutaneous Endoscopic Approach (ICD-10-PCS; CPT 47562; principal; 2024-10-17 09:45)
DX: K85.10 Biliary acute pancreatitis without necrosis or infection (principal); K80.10 Calculus of gallbladder with chronic cholecystitis without obstruction
CPT/HCPCS: 47562; 00790; 88304; A9270; J0330; J0665; J0690; J1100; J1171; J1885; J2250; J2405; J2704; J3010; J3490; J7120